=== PATIENT | male | born 1955 | race Caucasian/White ===

== ENCOUNTER 2020-09-01 14:15 | Outpatient (REF) | payer MEDICARE, SELFPAY | END 2020-09-01 14:16 | disposition home or self-care (01) | LOC: HO.LNP 14:15 | PROVIDERS: Visit Provider Nurse Practitioner Family | DX: Z20.828 Contact with and (suspected) exposure to other viral communicable diseases (principal) | CPT/HCPCS: 87635 ==

== ENCOUNTER 2021-10-09 14:17 | Emergency (ER) | payer MEDICARE, SELFPAY ==
--- NOTE | ~2021-10-09 | XR_ITS ---
EXAMINATION: XR TIBIA AND FIBULA, RIGHT CLINICAL INFORMATION: Trauma COMPARISON: None TECHNIQUE: AP and lateral views of the right tibia and fibula were obtained. FINDINGS: The bones and soft tissues are normal. No fracture. No osseous lesions. XR/XR tibia fibula RT 2V IMPRESSION: Normal right tibia and fibula.
[2021-10-09 14:31] VITALS: BP 141/82; PULSE 55; RESP 18; TEMP 36.6; O2SAT 98; BMI 31.8
--- NOTE | 2021-10-09 14:50 | ED_ITS ---
HPI - Extremity Injury (Lower) General Chief Complaint: Extremity Injury, Lower Stated Complaint: r godoy inj Time Seen by Provider: 10/09/21 14:45 Source: patient Mode of arrival: ambulatory Limitations: no limitations History of Present Illness HPI Narrative: Pt injured the ant rt leg while lifting a stone,c/o rt anterior leg pain complaint: leg injury Onset (ago): hour(s) (2h ) Type of Injury: blunt Place: street/outdoors Severity: moderate Relieving factors: nothing Exacerbating factors: nothing Context: direct blow Related Data Home Medications Medication Instructions Recorded Confirmed atorvastatin 20 mg tablet 20 mg PO DAILY 09/01/20 clotrimazole 1 % topical cream 1 applic TOPICAL QAM AND QHS 09/01/20 metoprolol tartrate 25 mg tablet 25 mg PO BID 09/01/20 varicella-zoster glycoE [id number] IM ONCE 09/01/20 adj(PF) 50 mcg/0.5 mL IM susp, kit Allergies Allergy/AdvReac Type Severity Reaction Status Date / Time poison isrrael extract Allergy Unknown RASH Unverified 08/12/20 15:18 [POISON ISRRAEL] Review of Systems Review of Systems: Yes all other systems are reviewed and are negative Constitutional: Constitutional: Reports no additional constitutional complai nts ENT: Reports system reviewed and no additional complaints, except as documented and Denies dizziness Cardiovascular: Cardiovascular: Reports no additional cardiovascular complaints and Denies syncope Respiratory: Respiratory: Reports no additional respiratory complaints Gastrointestinal: Gastrointestinal: Reports no additional gastrointestinal complaints Neurologic: Denies dizziness, Denies syncope, Denies lack of coordination and Denies focal weakness [facility] Social History Social History Advance Directives: No Advance Directives Information Provided: No Physical Exam Vital Signs: Vital Signs: Last Vital Signs Temp 98 F 10/09/21 14:31 Pulse 55 10/09/21 14:31 Resp 18 10/09/21 14:31 BP 141/82 H 10/09/21 14:31 Pulse Ox 98 10/09/21 14:31 Body Mass Index 31.8 Const: General: cooperative, healthy appearing, well developed and alert HENMT: Head: Yes normal to inspection Mouth: Normal oral and palatal mucosa present Neck: Neck: Yes normal visual inspection Chest: Chest palpation & inspection: normal inspection of the chest and normal palpation of entire chest wall Resp: Effort & Inspection: normal respiratory effort Auscultation: clear to auscultation bilaterally Cardio: Jugular venous distension: no JVD Palpation: normal PMI Rate: regular rate Rhythm: regular rhythm GI: Inspection: Yes normal to inspection Palpation (GI): Soft to palpation, Firmness to palpation present (GI), Tenderness to palpation present (GI) and Guarding due to palpation present (GI) Extrem: Other: hematoma anterior aspect rt leg,calf is soft He has good pedal pulses Course Course Course Narrative: xray no fx seen,pt has sodt tissue swelling,he has good pulses at this time. Pt was told to keep his leg elevated all the time,to put ice and to return if increasing swelling MDM - Extremity Injury (Lower) Imaging Data leg xr: Radiologist's impression: cc: Cholo Connell MD~ EXAMINATION: XR TIBIA AND FIBULA, RIGHT CLINICAL INFORMATION: Trauma? COMPARISON: None? TECHNIQUE: AP and lateral views of the right tibia and fibula were obtained. FINDINGS: The bones and soft tissues are normal. No fracture. No osseous lesions. ? XR/XR tibia fibula RT 2V IMPRESSION: Normal right tibia and fibula. ? Dictated By: Mary Her MD Signed By: <Electronically signed by Mary Her MD in OV> 10/09/21 1531 DD/ 1449 TD/TT:? General House Worker: VIRGEN Discharge Plan Discharge Clinical Impression: Hematoma of lower leg, Abrasion Patient Disposition: Home, Self-Care Instructions: Contusion in Adults (ED), Hematoma (ED) Additional Instructions: Keep your leg elevated, apply ice, return to the emergency department if the swelling increases if the foot feels numb if you have increasing pain Referrals: Olivia Greenwood MD [Primary Care Provider] - 2 days
== END 2021-10-09 15:48 | disposition home or self-care (01) ==
PROVIDERS: Emergency Provider Emergency Medicine; PCP Internal Medicine
DX: S80.11XA Contusion of right lower leg, initial encounter (principal); S80.811A Abrasion, right lower leg, initial encounter; X50.9XXA Other and unspecified overexertion or strenuous movements or postures, initial encounter; Y93.9 Activity, unspecified; Y92.89 Other specified places as the place of occurrence of the external cause; Y99.9 Unspecified external cause status
CPT/HCPCS: 73590; 99283

== ENCOUNTER 2022-05-16 13:37 | Emergency (ER) | payer MEDICARE, SELFPAY ==
[2022-05-16 13:38] VITALS: BP 138/75; PULSE 50; RESP 18; TEMP 36.6; O2SAT 99; BMI 32.5
[2022-05-16] MEDS: Lidocaine HCl 1 % MPF 5 ML VIAL SUBCUT (15:34)
--- NOTE | 2022-05-16 16:04 | ED_ITS ---
HPI - Wound/Laceration General Chief Complaint: Wound/Laceration Stated Complaint: l leg laceration at home Time Seen by Provider: 05/16/22 14:32 Source: patient Mode of arrival: ambulatory Limitations: no limitations History of Present Illness HPI narrative: 67-year-old male with a history of high blood pressure and high cholesterol here with report of laceration to the left thigh which occurred 30 minutes prior to arrival. Patient tells me he was using a maggie saw and it kicked back cutting his left leg through his jeans. His last tetanus was 5 years ago. No numbness, tingling, redness, fevers, chills. Related Data Home Medications Medication Instructions Recorded Confirmed atorvastatin 20 mg tablet 20 mg PO DAILY 09/01/20 clotrimazole 1 % topical cream 1 applic topical QAM AND QHS 09/01/20 metoprolol tartrate 25 mg tablet 25 mg PO BID 09/01/20 varicella-zoster glycoE [id number] IM ONCE 09/01/20 adj(PF) 50 mcg/0.5 mL IM susp, kit Previous Rx's Medication Instructions Recorded cephalexin 500 mg capsule 500 mg PO BID #14 caps 05/16/22 Allergies Allergy/AdvReac Type Severity Reaction Status Date / Time poison jessika extract Allergy Unknown RASH Unverified 08/12/20 15:18 [POISON JESSIKA] Review of Systems Review of Systems: Yes all other systems are reviewed and are negative Constitutional: Constitutional: Reports no additional constitutional complaints, Denies body ache(s), Denies chills, Denies fever(s), Denies headache(s) and Denies weakness Eyes: Eyes: Reports no additional eye complaints and Denies change in vision ENT: Reports system reviewed and no additional complaints, except as documented, Denies dizziness, Denies headache(s), Denies nasal congestion, Denies nasal discharge and Denies neck pain Cardiovascular: Cardiovascular: Reports no additional cardiovascular complaints, Denies chest pain, Denies leg edema and Denies dyspnea Respiratory: Respiratory: Reports no additional respiratory complaints, Denies cough and Denies dyspnea Gastrointestinal: Gastrointestinal: Reports no additional gastrointestinal complaints, Denies abdominal pain, Denies diarrhea, Denies nausea and Denies vomiting Genitourinary: Genitourinary: Denies urinary incontinence Musculoskeletal: Musculoskeletal: Reports no additional musculoskeletal complaints, Denies back pain, Denies arthralgias, Denies joint swelling, Denies neck pain, Denies numbness and Denies tingling Integumentary/Breasts: Skin/Breast: Reports system reviewed and no additional complaints, except as docu and Denies rash Comments: +lac Neurologic: Reports system reviewed and no additional complaints, except as documented, Denies Abnormal speech present, Denies dizziness, Denies headache(s), Denies numbness, Denies tingling and Denies weakness PMFSH Past Medical History Attestation statement: The following information was validated with the patient. Source: old records reviewed and nursing notes reviewed Social History Social History Advance Directives: No Advance Directives Information Provided: No Physical Exam Vital Signs: Vital Signs: Last Vital Signs Temp 98 F 05/16/22 13:38 Pulse 50 05/16/22 13:38 Resp 18 05/16/22 13:38 BP 138/75 05/16/22 13:38 Pulse Ox 99 05/16/22 13:38 O2 Del Method 05/16/22 13:38 BMI result Body Mass Index 32.5 Const: General: cooperative, healthy appearing, comfortable and no acute distress Orientation/consciousness: patient oriented x3 Limitations: no limitations HEENT: Head: Yes normal to inspection Ears: hearing grossly normal cece aterally General nose exam: Normal external nose present Face and sinus: Yes normal facial exam Mouth: Normal oral and palatal mucosa present Throat: Yes posterior oropharynx normal Eyes: General: appearance normal, both eyes and all related structures Pupils: Equal, round and reactive pupils present Neck: Neck: Yes normal visual inspection Chest: Chest palpation & inspection: normal inspection of the chest Resp: Effort & Inspection: normal respiratory effort Auscultation: clear to auscultation bilaterally Cardio: Rate: regular rate Rhythm: regular rhythm Peripheral pulses: Peripheral pulses 2+ throughout GI: Inspection: Yes normal to inspection Palpation (GI): Soft to palpation and nontender Auscultation: normal bowel sounds Back/Spine/Pelvis: Thoracic/Lumbar Spine: thoracic and lumbar spine normal to inspection Skin: General skin exam: no rashes or lesions noted Neuro: General: patient oriented x3, no focal motor deficits and normal sensation to monofilament Cranial nerves: Yes Equal, round and reactive pupils present Cognition (Neuro): normal cognition Speech: No Abnormal speech present Gait exam (Neuro): Normal gait present Motor exam (neuro): 5/5 motor strength present throughout Extrem: General: Yes normal to inspection Knee images: 1. 8 cm laceration into the subcutaneous tissue. The muscle is nor mal. Patient is able to flex and extend the quad with no difficulty. Distal DP and PT pulses palpated Course Course Course Narrative: 1500-during the wound repair approximately 8-10 4 x 4 dressings were used due to bleeding. The site was irrigated extensively with Betadine and normal saline. After the wound was repaired there was quite a bit of bleeding noted from the suture sites and from the wound bed. A dressing was applied as well as compression bandage. Will monitor for 30 minutes reassessed Reevaluation(s) Reevaluation #1: The compression bandage was removed. There was a local hematoma underneath the laceration site. There is still some active bleeding coming from the incision. It appeared to be coming more proximally. The wound was seen in conjunction with Dr. Castellon. I injected 7 cc of lidocaine with epinephrine into the proximal site and reapplied the compression bandage. Will monitor Time: 15:30 Reevaluation #2: I removed the compression bandage. Bleeding has ceased. I pressed all around the hematoma underneath the surgical site and there was no bleeding produced. A compression bandage was reapplied. Will give crutches. Will treat with prophylactic antibiotics due to the movement of the wound. Reviewed worrisome signs and symptoms with the patient when to return to the emergency department. Comfortable discharge home. Time: 16:00 MDM - Wound/Laceration MDM Narrative Medical decision making narrative: 67 yo male with history of htn, hld here with laceration to left thigh. FROM distally. Bleeding controlled. tetanus up to date. See procedure note. Differential Diagnosis Differential diagnosis: Likely laceration Medical Records Attestation: I reviewed the patient's medical records. Lab Data Attestation: I reviewed the patient's lab results. Procedures Laceration Laceration 1: Site: other (thigh) Side (If applicable): left Size (cm): 8 Description: linear Depth: simple, single layer Local Anesthetic: lidocaine 1% Amount of anesthesia used (mL): 13 Pre-repair: wound explored, irrigated extensively and deep structures intact Skin layer closed with: vicryl Size (cm): 5-0 Number of sutures: 8 Technique: simple, interrupted Subcutaneous layer closed with: other (Poly sorb) Size: 4-0 Number of sutures: 3 Discharge Plan Discharge Clinical Impression: Laceration Patient Disposition: Home, Self-Care Additional Instructions: Leave the Uri wrap on for the next 2 days. Use crutches just to help you with ambulation. You can bear some weight Wash the area with soap and water every day while showering. Water may run over the sutures but do not like them soak in water Sutures out in 10 days Monitor for signs of infection which include redness, drainage, fever Return for a cold, pale foot. Return if the thigh is very firm and your unable to press it. Return if you have numbness or tingling in your lower leg or for severe pain Prescriptions: New cephalexin 500 mg capsule 500 mg PO BID Qty: 14 0RF Referrals: Olivia Greenwood MD [Primary Care Provider] - 10 days Interventions: ED Discharge Assessment Last Done: 05/16/22 16:29 Discharge Date/Time: 05/16/22 16:30
[2022-05-16] MEDS: Lidocaine HCl 2%/Epi 1:100,000 20 ML VIAL INFILTRATI (16:12)
== END 2022-05-16 16:30 | disposition home or self-care (01) ==
PROVIDERS: Emergency Provider Emergency Medicine; PCP Internal Medicine
DX: S71.112A Laceration without foreign body, left thigh, initial encounter (principal); W31.1XXA Contact with metalworking machines, initial encounter; Y93.9 Activity, unspecified; Y92.9 Unspecified place or not applicable; Y99.9 Unspecified external cause status; Z79.899 Other long term (current) drug therapy
CPT/HCPCS: 12034; 99283; 99284

== ENCOUNTER 2022-05-22 11:45 | Emergency (ER) | payer MEDICARE, SELFPAY ==
[2022-05-22 12:49] VITALS: BP 129/67; PULSE 50; RESP 17; TEMP 36.8; O2SAT 98; BMI 32.5
--- NOTE | 2022-05-22 14:18 | ED_ITS ---
HPI - Wound/Laceration General Chief Complaint: Wound/Laceration Stated Complaint: stitches popped out,swollen wound area, fluid leak Time Seen by Provider: 05/22/22 13:50 Source: patient Mode of arrival: ambulatory Limitations: no limitations History of Present Illness HPI narrative: Left thigh wound laceration check. Patient sustained a left thigh wound laceration patient require 8 sutures and subcu suturing, patient came in today after noted increased ease serous agent is discharged from the mind with swelling under the laceration patient otherwise decline fever, no chills, no knee joint swelling or pain able to fully move his left knee. No other trauma, noted that 1 of the suture came out. Related Data Home Medications Medication Instructions Recorded Confirmed atorvastatin 20 mg tablet 20 mg PO DAILY 09/01/20 clotrimazole 1 % topical cream 1 applic topical QAM AND QHS 09/01/20 metoprolol tartrate 25 mg tablet 25 mg PO BID 09/01/20 varicella-zoster glycoE [id number] IM ONCE 09/01/20 adj(PF) 50 mcg/0.5 mL IM susp, kit Previous Rx's Medication Instructions Recorded cephalexin 500 mg capsule 500 mg PO BID #14 caps 05/16/22 doxycycline hyclate 100 mg tablet 100 mg PO BID #14 tabs 05/22/22 mupirocin 2 % topical ointment 1 appl topical TID #15 grams 05/22/22 Allergies Allergy/AdvReac Type Severity Reaction Status Date / Time poison jessika extract Allergy Unknown RASH Unverified 08/12/20 15:18 [POISON JESSIKA] Review of Systems Review of Systems: All other systems are reviewed and are negative Constitutional: Reports as per HPI and Reports no additional constitutional complaints Eyes: Reports as per HPI and Reports no additional eye complaints Reports system reviewed and no additional complaints, except as documented Cardiovascular: Reports as per HPI and Reports no additional cardiovascular complaints Respiratory: Reports as per HPI and Reports no additional respiratory complaints Gastrointestinal: Reports as per HPI and Reports no additional gastrointestinal complaints Genitourinary: Reports no additional female genitourinary complaints Musculoskeletal: Reports no additional musculoskeletal complaints Skin/Breast: Reports system reviewed and no additional complaints, except as docu Psychiatric: Reports no additional psychiatric complaints Endocrine: Reports no additional endocrine complaints Hematologic/Lymphatic: Reports no additional hematologic/lymphatic complaints Allergic/Immunologic: Reports no additional allergic/immunologic complaints Reports system reviewed and no additional complaints, except as documented and Reports Abnormal speech present [facility] Social History Social History Advance Directives: No Advance Directives Information Provided: Yes Physical Exam Vital Signs: Vital Signs: Last Vital Signs Temp 98.3 F 05/22/22 12:49 Pulse 50 05/22/22 12:49 Resp 17 05/22/22 12:49 BP 129/67 05/22/22 12:49 Pulse Ox 98 05/22/22 12:49 O2 Del Method 05/22/22 12:49 BMI result Body Mass Index 32.5 Vital signs have been reviewed as appeared to be correct. Blood pressure normal. Heart rate normal. Respiration rate normal. Temperature normal. Oxygen saturation normal. Appearance: Alert. Oriented X3. No acute distress. Head: Normal external exam. Normocephalic. Atraumatic. No Maguire signs noted. No raccoon eyes noted Eyes: PERRLA. EOMI. Conjunctiva and sclera normal. Eyelids normal. ENT: TM's Normal. Pharynx normal. Uvula midline. Moist mucous membranes. No tr ismus noted. No drooling noted. No muffled voice noted. Neck: Normal inspection. Neck supple. FROM. No adenopathy. Thyroid Normal. No meningeal signs. No neck mass noted. CVS: Normal heart rate and rhythm. Heart sound normal. No murmurs noted. Pulses normal throughout. Respiratory: No respiratory distress. Painless inspiration. Breath sounds normal. No wheezes/rales/rhonchi noted. Chest nontender. No accessory muscle usage noted or decreased air movement noted. Abdomen: Soft and nontender. Bowel sounds normal in all 4 quadrants. No distention noted. No organomegaly noted. No visible injury noted. Back: No CVA tenderness. Full range of motion noted. Skin: Skin warm and dry. Normal skin color. Normal skin turgor. No rashes/lesions/lacerations noted. Extremities: 8 cm laceration on the inner side of the left thigh, [address], slight serosanguineous discharge from the wound, but otherwise appear healing well, no fluctuation felt, full range of motion of the left knee with no redness on the knee, slight ecchymosis proximal and distal to the laceration which appear to be a SQ hematoma. Cranial nerve exam: II-XII are grossly intact No motor deficit. No sensory deficit. Reflexes normal. Course Course Course Narrative: 67-year-old male sustained laceration to the left knee patient require suturing for wound repair her including SQ wound repair, no fluctuation, no apparent cellulitis on the wound. Patient has a full range of motion of the left knee. Patient was sent home on Keflex twice a day will add doxycycline to cover for MRSA. Discharge Plan Discharge Clinical Impression: Encounter for wound re-check Patient Disposition: Home, Self-Care Instructions: Laceration (ED) Additional Instructions: Use bacitracin ointment 3 times a day and change dressing. Use a new antibiotic with the other antibiotic. Return to the emergency department in 3 days for suture removal and wound recheck. Come immediately to the emergency department if notice redness or hotness or purulent discharge from the wound. Prescriptions: New doxycycline hyclate 100 mg tablet 100 mg PO BID Qty: 14 0RF mupirocin 2 % ointment 1 appl topical TID Qty: 15 0RF Rx Instructions: Apply to the wound 3 times a day for 5 days. No Action cephalexin 500 mg capsule 500 mg PO BID Qty: 14 0RF
--- NOTE | 2022-05-22 14:22 | PC.NURSE ---
Dr Verdin asked to place dressing on pt sutures to the left leg. The dressing was placed pt is comfortable and awaiting discharge
== END 2022-05-22 14:50 | disposition home or self-care (01) ==
PROVIDERS: Emergency Provider Emergency Medicine; PCP Internal Medicine
DX: Z48.00 Encounter for change or removal of nonsurgical wound dressing (principal)
CPT/HCPCS: 99283

== ENCOUNTER 2022-05-26 10:54 | Emergency (ER) | payer MEDICARE, SELFPAY ==
[2022-05-26 11:15] VITALS: BP 118/71; PULSE 46; RESP 16; TEMP 36.6; O2SAT 97; BMI 32.5
--- NOTE | 2022-05-26 11:43 | ED_ITS ---
HPI - General Adult General Chief complaint: General Medical Stated complaint: suture removal from prev. visit Time Seen by Provider: 05/26/22 11:23 Source: patient Mode of arrival: ambulatory History of Present Illness HPI narrative: 67-year-old male with a past medical history of HTN, HLD, presenting to the ED for suture removal from a left thigh and wound recheck. Patient had large laceration to left thigh s/p using saw on 05/16/2022, which was repaired in our ED and discharged on Keflex. Patient was seen again on 05/22 for wound recheck, doxycycline added to regimen. Patient reports compliance with antibiotics, reports overall improvement. Admits 2 sutures popped out on their own. Reports mild residual drainage from area which is improving. Denies fever, chills, decreased ROM, increased swelling, numbness/tingling Related Data Home Medications Medication Instructions Recorded Confirmed atorvastatin 20 mg tablet 20 mg PO DAILY 09/01/20 clotrimazole 1 % topical cream 1 applic topical QAM AND QHS 09/01/20 metoprolol tartrate 25 mg tablet 25 mg PO BID 09/01/20 varicella-zoster glycoE [id number] IM ONCE 09/01/20 adj(PF) 50 mcg/0.5 mL IM susp, kit Previous Rx's Medication Instructions Recorded cephalexin 500 mg capsule 500 mg PO BID #14 caps 05/16/22 doxycycline hyclate 100 mg tablet 100 mg PO BID #14 tabs 05/22/22 mupirocin 2 % topical ointment 1 appl topical TID #15 grams 05/22/22 Allergies Allergy/AdvReac Type Severity Reaction Status Date / Time poison jessika extract Allergy Unknown RASH Verified 05/26/22 11:20 [POISON JESSIKA] Review of Systems Review of Systems: Constitutional: No Fever, No Chills ENT/Mouth: No Ear Pain, No Nasal Congestion, No sore throat, No Rhinorrhea, No Swallowing Difficulty Cardiovascular: No Chest Pain, No SOB Respiratory: No Cough, No Sputum, No Wheezing Gastrointestinal: No Nausea, No Vomiting, No Diarrhea, No Constipation, No Abdominal pain Genitourinary: No Dysuria, No Urgency, No Flank Pain Musculoskeletal: No joint pain, No Myalgias, No Joint Swelling Skin: + Skin Lesions, No rash Neuro: No Weakness, No Numbness, No Paresthesias Yes all other systems are reviewed and are negative [facility] Past Medical History Attestation statement: The following information was validated with the patient. Social History Social History Advance Directives: No Advance Directives Information Provided: Yes Physical Exam ED Vital Signs: Vital Signs - 24 hr 05/26/22 11:15 Temperature 97.9 F Pulse Rate 46 L Respiratory Rate 16 Blood Pressure 118/71 Pulse Oximetry 97 Oxygen Delivery Method Room Air BMI result Body Mass Index 32.5 Const General: cooperative, healthy appearing and no acute distress Orientation/consciousness: patient oriented x3 Limitations: no limitations HENMT Head: Yes normal to inspection and Yes atraumatic Ears: hearing grossly normal bilaterally General nose exam: Normal external nose present Face and sinus: Yes normal facial exam Eyes General: appearance normal, both eyes and all related structures EOM: EOMs intact bilaterally Neck Neck: Yes normal visual inspection and Yes no meningeal signs Resp Effort & Inspection: normal respiratory effort and no respiratory distress Auscultation: clear to auscultation bilaterally Cardio Rate: regular rate Heart sounds: S1 normal heart sound present and S2 normal heart sound present GI Inspection: Yes normal to inspection Skin Other: Appropriately healing laceration noted to left inner thigh with [address] Mild surrounding healing ecchymosis with underlying hematoma. No active drainage from wound. Slight centralized wound dehiscence. No fluctuance/induration, no erythema, no crepitus. Full range of motion to knee intact. Rashes: no rashes Neuro General: patient oriented x3, tone normal and no meningeal signs Gait exam (Neuro): Normal gait present Extrem General: Yes normal to inspection Procedures Procedure Narrative Procedure Narrative: Suture removal Left thigh 6 sutures removed No complications Steri-Strips applied with nonstick and Uri wrap Medical Decision Making [facility] Narrative Medical decision making narrative: 67-year-old male with a past medical history of HTN, HLD, presenting to the ED for suture removal from a left thigh and wound recheck. On exam vital signs stable, NAD, physical exam as above. Six sutures removed from healing wound. Encouraged completion of previously prescribed antibiotics, Steri-Strips applied for extra support. Discussed worrisome signs and symptoms and strict return precautions Discharge Plan Discharge Clinical Impression: Encounter for removal of sutures, Visit for wound check Patient Disposition: Home, Self-Care Instructions: Stitches Removal (ED) Additional Instructions: Continue taking previously prescribed antibiotics. Wear Steri-Strips at home, keep dry and clean, they will fall off on their own Continue to wear Uri wrap If symptoms persist or worsen, area begins to look infected, has persistent or worsening drainage, redness around the area return to the emergency department Prescriptions: No Action cephalexin 500 mg capsule 500 mg PO BID Qty: 14 0RF doxycycline hyclate 100 mg tablet 100 mg PO BID Qty: 14 0RF mupirocin 2 % ointment 1 appl topical TID Qty: 15 0RF Rx Instructions: Apply to the wound 3 times a day for 5 days. Referrals: Olivia Greenwood MD [Primary Care Provider] - 5 days Interventions: ED Discharge Assessment Last Done: 05/26/22 11:51 Discharge Date/Time: 05/26/22 11:52
--- NOTE | 2022-05-26 11:51 | PC.NURSE ---
NO SIGN OF INFECTION TO LEFT THIGH WOUND.
== END 2022-05-26 11:52 | disposition home or self-care (01) ==
PROVIDERS: Emergency Provider Emergency Medicine Emergency Medical Services; PCP Internal Medicine
DX: Z48.02 Encounter for removal of sutures (principal); Z79.899 Other long term (current) drug therapy
CPT/HCPCS: 99283

== ENCOUNTER 2022-07-28 12:12 | Emergency (ER) | payer MEDICARE, SELFPAY ==
--- NOTE | ~2022-07-28 | CT_ITS ---
EXAMINATION: CT ANGIOGRAM OF THE CHEST WITH AND WITHOUT CONTRAST (CT PULMONARY ANGIOGRAM FOR PE) CLINICAL INFORMATION: Reason for Exam new afib, COVID, SOB, cough COMPARISON: None TECHNIQUE: Prior to contrast administration, noncontrast localization images were obtained. Subsequently, multidetector volumetric imaging was performed from the thoracic inlet to below the diaphragms following the administration of 65 mL Omnipaque 350 intravenous contrast. No contrast reaction reported Sagittal, coronal, and MIP oblique sagittal reformatted images were obtained on the CT workstation, uploaded to PACS, and reviewed. This CT examination was performed using dose optimization techniques as appropriate, variously including the following: *Automated exposure control *Adjustment of mA and/or kV according to patient size (this includes techniques or standardized protocols for targeted exams where dose is matched to indication/reason for exam; i.e. extremities or head) *Use of iterative reconstruction technique Total exam dose-length product 368 mGy-cm FINDINGS: QUALITY OF STUDY/CONTRAST BOLUS: Satisfactory. PULMONARY ARTERIES: No central or segmental pulmonary emboli. THORACIC AORTA: No aneurysm or dissection. LUNG: No focal consolidation or nodule identified. PLEURA: No pleural effusion or pneumothorax. MEDIASTINUM: Normal heart size. No pericardial effusion. No hilar or mediastinal lymphadenopathy by size criteria. No evidence of septal bowing or right heart strain. CHEST WALL/AXILLA: No axillary or internal mammary lymphadenopathy by size criteria. OSSEOUS STRUCTURES: No acute finding. UPPER ABDOMEN: Suspect normal variant origin of the left hepatic artery from the left gastric artery. No reflux of contrast into the hepatic veins to suggest elevated right heart pressures. CT/CT angio chest PE protocol IMPRESSION: No evidence of pulmonary embolism. VTE: negative
--- NOTE | ~2022-07-28 | XR_ITS ---
EXAMINATION: XR CHEST CLINICAL INFORMATION: Chest pain COMPARISON: Chest radiographs 03/22/2017 TECHNIQUE: Portable upright AP view of the chest was obtained. FINDINGS: No pneumothorax or pleural reaction. No airspace consolidation or effusion. The vascularity is normal. Heart is within limits of normal size. Hilar and mediastinal contours are unremarkable. No visible acute bony abnormality. XR/XR chest 1V IMPRESSION: Unremarkable examination.
--- NOTE | 2022-07-28 12:16 | ECG_ITS ---
Test Reason : CHEST PAIN Blood Pressure : / mmHG Vent. Rate : 101 BPM Atrial Rate : 000 BPM P-R Int : 000 ms QRS Dur : 078 ms QT Int : 324 ms P-R-T Axes : 000 000 -34 degrees QTc Int : 420 ms Atrial fibrillation with rapid ventricular response Inferior infarct , age undetermined Abnormal ECG When compared with ECG of 22-MAR-2017 20:38, T wave inversion more evident in Inferior leads Referred By: Generic ED Physician Electronically Signed By:BROOKLYN PINEDA
[2022-07-28 12:24] VITALS: BP 79/56; PULSE 83; RESP 18; TEMP 37.7; O2SAT 96; BMI 31.8
[2022-07-28 12:41] LABS: MANUAL DIFF FLAG NO
--- NOTE | 2022-07-28 12:41 | PC.NURSE ---
Pt brought back to ED immediately after triage.
[2022-07-28 12:42] LABS: Basophils Percent Auto 0.2 % (0-2); Hematocrit 44.5 % (42.0-52.0); Imm Gran Abs Auto 0.05 X10*3/uL (0.00-0.03); Imm Gran Pct Auto 0.5 % (0.0-0.4); Lymphocytes Absolute Auto 1.1 X10*3/uL (1.2-4.9); Lymphocytes Percent Auto 10.1 % (20-40); Mean Corpuscular HGB Conc 33.7 g/dl (31.0-36.0); Mean Corpuscular Hemoglobin 30.7 pg (27.0-33.0); Mean Corpuscular Volume 91.2 fL (80.0-98.0); Mean Platelet Volume 11.3 fL (9.4-12.4); Monocytes Absolute Auto 1.2 X10*3/uL (0.1-1.2); Neutrophils Absolute Auto 8.3 x10*3/uL (2.0-8.3); Neutrophils Percent Auto 78.2 % (45-73); Platelet Count 142 X10*3/uL (160-400); Red Blood Count 4.88 X10*6/uL (4.60-5.80); Red Cell Distribution Width 13.2 % (11.0-16.0); White Blood Count 10.5 X10*3/uL (4.8-10.8)
[2022-07-28] MEDS: 0.9 % Sodium Chloride 1,000 ML 999 ML IVCONT (12:52)
[2022-07-28 12:53] VITALS: BP 130/76; PULSE 97; RESP 16; TEMP 37.3; O2SAT 96
[2022-07-28 12:55] LABS: Anion Gap 18 (12-20); Blood Urea Nitrogen 14 mg/dL (9-16); Calcium 8.7 mg/dL (8.4-10.2); Carbon Dioxide 23 mmol/L (22-29); Chloride 97 mmol/L (96-108); Creatinine Clr Calc Pharmacy 83.3; Estimated Glomerular Filt Rate > 60; Glucose Random 122 mg/dL (60-115); Potassium 4.2 mmol/L (3.3-5.1); Sodium 134 mmol/L (135-145)
--- NOTE | 2022-07-28 13:00 | ED.CHESTPAIN ---
HPI - Chest Pain General Chief Complaint: Chest Pain Stated Complaint: chest tightness/Diff breathing/weakness Time Seen by Provider: 07/28/22 12:39 Source: patient and family Mode of arrival: ambulatory History of Present Illness HPI narrative: Patient is a 67-year-old male presenting with shortness of breath, chest tightness, fever, weakness, productive cough, sore throat for 5 days. Patient tested positive for COVID x5 days ago and reports worsening of symptoms since. Patient reports starting Paxlovid last night, and feels worse today. Reports fevers ranging from 100-101, and pulse rate resting and upper 90s. Patient also reports GI upset since last week. Reports is also COVID positive day 8, asymptomatic now. Reports decreased appetite, denies any nausea, vomiting, diarrhea. 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 Patient has been followed by cardiology since and is maintained on metoprolol however is not anticoagulated and has not had any recorded AFib since initial episode 5 years prior. MD complaint: chest heaviness and other (SOB, fever, weakness) Onset (ago): day(s) (5) Timing of current episode: increasing Onset: during rest and during exertion Pain radiation: none Quality: tightness Relieving factors: nothing Exacerbating factors: nothing Context: recent illness Associated symptoms: nausea, dyspnea, fever and cough Treatment prior to arrival: none Related Data Home Medications Medication Instructions Recorded Confirmed atorvastatin 20 mg tablet 20 mg PO DAILY 09/01/20 clotrimazole 1 % topical cream 1 applic topical QAM AND QHS 09/01/20 metoprolol tartrate 25 mg tablet 25 mg PO BID 09/01/20 varicella-zoster glycoE [id number] IM ONCE 09/01/20 adj(PF) 50 mcg/0.5 mL IM susp, kit Previous Rx's Medication Instructions Recorded cephalexin 500 mg capsule 500 mg PO BID #14 caps 05/16/22 doxycycline hyclate 100 mg tablet 100 mg PO BID #14 tabs 05/22/22 mupirocin 2 % topical ointment 1 appl topical TID #15 grams 05/22/22 benzonatate 100 mg capsule 100 mg PO TID PRN cough #30 caps 07/28/22 codeine 10 mg-guaifenesin 100 mg/5 5 ml PO Q6H PRN cough #60 mL 07/28/22 mL oral liquid (Guaiatussin AC) rivaroxaban 20 mg tablet (Xarelto) 20 mg PO DAILY AFIB with RVR #30 07/28/22 tabs Allergies Allergy/AdvReac Type Severity Reaction Status Date / Time poison jessika extract Allergy Unknown RASH Verified 07/28/22 12:22 [POISON JESSIKA] Review of Systems Review of Systems: Constitutional: + fever, +chills, +fatigue, +malaise, +weakness ENT/Mouth: + sore throat, + Rhinorrhea, No Swallowing Difficulty Eyes: No Eye Pain, No Swelling, No Redness Cardiovascular: + Chest tightness, + SOB, No Orthopnea, No Edema Respiratory: + Cough, + Sputum, No Wheezing, + dyspnea Gastrointestinal:+ decreased appetite, No Nausea, No Vomiting, No Diarrhea, No abdominal Pain, No Hematochezia, No Melena Genitourinary: No Dysuria, No Urinary Frequency, No Hematuria Musculoskeletal: No joint pain, + Myalgias Skin: No Skin Lesions, No rash Neuro: + Weakness, +headache, No Numbness, No Dizziness Psych: No Anxiety/Panic, No Depression Heme/Lymph: No Bruising, No Lymphadenopathy Endocrine: No Polyuria, No Polydipsia PMFSH Past Medical History Medical History (Updated 07/28/22 @ 16:20 by MIRANDA Stack) Arrhythmia COVID-19 Hypertension [place] spotted fever Surgical History (Updated 07/28/22 @ 12:56 by Candida Enrique) History of tonsillectomy Social History Social History Alcohol intake: former Patient Tobacco Use Status: Never used Tobacco Use of substances other than those prescribed or required for medical reasons: No Advance Directives: No Advance Directives Information Provided: Yes Physical Exam Vital Signs: Vital Signs: Last Vital Signs Temp 98.6 F 07/28/22 15:06 Pulse 100 07/28/22 16:19 Resp 16 07/28/22 16:19 BP 106/70 07/28/22 15:06 Pulse Ox 97 07/28/22 16:19 O2 Del Method 07/28/22 16:19 BMI result Body Mass Index 31.8 Const: Other: Appearance: Alert. Oriented X3. No acute distress. Eyes: Pupils equal, round and reactive to light. ENT: Pharynx erythematous. Neck: Normal inspection. Neck supple. CVS: New onset AFib with rapid ventricular response HR holding in 100-110s Respiratory: No respiratory distress. Breath sounds normal. Lungs clear to auscultation bilaterally, no wheezes, rales, rhonchi noted Abdomen: Soft and nontender. +BS x4 Skin: Skin warm and + mildly diaphoretic. Normal skin color. Normal skin turgor. No rashes. Extremities: No lower extremity edema. NO calf tenderness or redness Neuro: Oriented X 3. No motor deficit. No sensory deficit. Course Course Course Narrative: Patient is a 67-year-old male presenting with shortness of breath, chest tightness, fever, weakness, productive cough, sore throat for 5 days. Positive COVID x5days with worsening of symptoms, Paxlovid initiated last night. Upon arrival, patient noted to be in new atrial fibrillation with rapid ventricular response. Patient initially hypotensive at 79/56 with temperature 99.8 at triage. Patient alert and oriented, in no acute respiratory distress. Lungs clear to auscultation bilaterally, no wheezes, rales, rhonchi noted. IV fluids initiated and patient normotensive at 130/76. Concern for PE vs viral pneumonia vs pleurl effusions. Less concern for [place], pericarditis PE protocol initiated due to shortness of breath and new onset AFib. CT angio chest pending, CXR pending. ECG compared to previous episode acute onset AFib with RVR in 2017, no major changes noted. Labs notable for CRP elevated to 9.74, BNP 101. High sensitivity troponin WNL at 7.4, no leukocytosis, coags pending, D-dimer pending 1340: CXR FINDINGS: No pneumothorax or pleural reaction. No airspace consolidation or effusion. The vascularity is normal. Heart is within limits of normal size. Hilar and mediastinal contours are unremarkable. No visible acute bony abnormality. 1515: CTA w and wo contrast: IMPRESSION: No evidence of pulmonary embolism. Plan: patient was ambulated In the room on room air. His oxygen saturation remained 98%. His heart rate was stable at 100. At this time would like to initiate anticoagulation. 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 Will plan to restart that. Will have follow-up with Cardiology & his primary care doctor. Spoke with his pharmacy and unfortunately Eliquis and Xarelto were not covered by his insurance and will cause some was 500 dollars [id number]. Discussed possible Lovenox and Coumadin with the patient and his and they have elected to pay [id number] for the NOAC. will follow-up with providers as an outpatient. They have a home pulse oximeter to monitor heart rate and oxygen levels. He will continue his metoprolol. At this time comfortable discharge home with close outpatient follow-up. Patient expressed understanding all questions were answered. Stable for DC. MDM - Chest Pain Lab Data Result diagrams: 07/28/22 12:33 07/28/22 12:33 Labs: Lab Results 07/28/22 07/28/22 07/28/22 Range/Units 12:33 12:33 12:33 WBC 10.5 (4.8-10.8) X10*3/uL RBC 4.88 (4.60-5.80) X10*6/uL Hgb 15.0 (14.0-18.0) g/dl Hct 44.5 (42.0-52.0) % MCV 91.2 (80.0-98.0) fL MCH 30.7 (27.0-33.0) pg MCHC 33.7 (31.0-36.0) g/dl RDW 13.2 (11.0-16.0) % Plt Count 142 L (160-400) X10*3/uL MPV 11.3 (9.4-12.4) fL Immature Gran % (Auto) 0.5 H (0.0-0.4) % Neut % (Auto) 78.2 H (45-73) % Lymph % (Auto) 10.1 L (20-40) % [place] % (Auto) 11.0 (2-11) % Eos % (Auto) 0.0 (0-4) % Baso % (Auto) 0.2 (0-2) % Lymph # (Auto) 1.1 L (1.2-4.9) X10*3/uL [place] # (Auto) 1.2 (0.1-1.2) X10*3/uL Eos # (Auto) 0.0 (0.0-0.4) X10*3/uL Baso # (Auto) 0.0 (0.0-0.2) X10*3/uL Abs Immat Gran (auto) 0.05 H (0.00-0.03) X10*3/uL Absolute Neuts (auto) 8.3 (2.0-8.3) x10*3/uL Absolute Nucleated RBC 0.000 (0.0-0.012) X10*3/uL Nucleated RBC % (auto) 0.0 (0.0-0.2) /100WBC PT (10.0-13.1) SEC INR (0.9-1.1) APTT (26.0-36.4) SEC D-Dimer High Sensitivty NG/ML Sodium 134 L (135-145) mmol/L Potassium 4.2 (3.3-5.1) mmol/L Chloride 97 (96-108) mmol/L Carbon Dioxide 23 (22-29) mmol/L Anion Gap 18 (12-20) BUN 14 (9-16) mg/dL Creatinine 1.07 (0.5-1.4) mg/dL Estim Creat Clear Calc 83.3 Estimated GFR > 60 Random Glucose 122 H (60-115) mg/dL Calcium 8.7 (8.4-10.2) mg/dL Total Bilirubin 1.2 H (0.0-1.0) mg/dL Direct Bilirubin 0.4 (0.0-0.5) mg/dL AST 20 (5-37) U/L ALT 13 (0-40) U/L Alkaline Phosphatase 58 (39-117) U/L Troponin I High Sens 7.4 (<3.5-35.0) ng/L C-Reactive Protein 9.74 H (< or = 0.50) mg/dL B-Natriuretic Peptide 101 H (<100) pg/mL Total Protein 7.4 (6.5-8.0) g/dL Albumin 4.1 (3.5-5.0) g/dL 07/28/22 Range/Units 13:44 WBC (4.8-10.8) X10*3/uL RBC (4.60-5.80) X10*6/uL Hgb (14.0-18.0) g/dl Hct (42.0-52.0) % MCV (80.0-98.0) fL MCH (27.0-33.0) pg MCHC (31.0-36.0) g/dl RDW (11.0-16.0) % Plt Count (160-400) X10*3/uL MPV (9.4-12.4) fL Immature Gran % (Auto) (0.0-0.4) % Neut % (Auto) (45-73) % Lymph % (Auto) (20-40) % [place] % (Auto) (2-11) % Eos % (Auto) (0-4) % Baso % (Auto) (0-2) % Lymph # (Auto) (1.2-4.9) X10*3/uL [place] # (Auto) (0.1-1.2) X10*3/uL Eos # (Auto) (0.0-0.4) X10*3/uL Baso # (Auto) (0.0-0.2) X10*3/uL Abs Immat Gran (auto) (0.00-0.03) X10*3/uL Absolute Neuts (auto) (2.0-8.3) x10*3/uL Absolute Nucleated RBC (0.0-0.012) X10*3/uL Nucleated RBC % (auto) (0.0-0.2) /100WBC PT 13.1 (10.0-13.1) SEC INR 1.1 (0.9-1.1) APTT 31.0 (26.0-36.4) SEC D-Dimer High Sensitivty 287 NG/ML Sodium (135-145) mmol/L Potassium (3.3-5.1) mmol/L Chloride (96-108) mmol/L Carbon Dioxide (22-29) mmol/L Anion Gap (12-20) BUN (9-16) mg/dL Creatinine (0.5-1.4) mg/dL Estim Creat Clear Calc Estimated GFR Random Glucose (60-115) mg/dL Calcium (8.4-10.2) mg/dL Total Bilirubin (0.0-1.0) mg/dL Direct Bilirubin (0.0-0.5) mg/dL AST (5-37) U/L ALT (0-40) U/L Alkaline Phosphatase (39-117) U/L Troponin I High Sens (<3.5-35.0) ng/L C-Reactive Protein (< or = 0.50) mg/dL B-Natriuretic Peptide (<100) pg/mL Total Protein (6.5-8.0) g/dL Albumin (3.5-5.0) g/dL ECG Data ECG #1: Attestation: I personally reviewed and interpreted this ECG as follows: ECG interpretation date: 07/28/22 ECG interpretation time: 13:11 Prior ECG tracings: available for review Interpretation: Atrial fibrillation with rapid ventricular rate response, no ST elevations or depressions noted, normal QTC interval, no major changes when compared to prior ECG in 2017. Critical Care Time Critical Care Time Critical Care Time: Yes Total Critical Care Time: 35 Attestation: I have personally provided critical care time exclusive of time spent on separately billable procedures. Time includes review of lab data, radiology results, discussion with consultants, and monitoring for potential decompensation. Intervention performed as documented. Discharge Plan Discharge Clinical Impression: Atrial fibrillation with rapid ventricular response, COVID-19 Patient Disposition: Home, Self-Care Instructions: A-fib (Atrial Fibrillation) (DC), Blood Thinners (ED) Additional Instructions: You are currently in atrial fibrillation. Please continue taking your metoprolol as prescribed. Please begin taking the Xarelto as prescribed, and follow-up with Cardiology and your PCP. Be aware that Xarelto will increase the risk of bleeding. Your CT scan showed no sign of pulmonary embolism or COVID pneumonia. recommend taking Tylenol 975 mg every 6 hours for fever and body aches. rest and drink plenty of fluids. avoid NSAIDs and anti-inflammatories while on blood thinner. Take cough medication as needed. Monitor your heart rate and oxygen level at home. If your heart rate is above 110-120 with shortness of breath, or if your oxygen levels are 90 or below, call 911 or come back to the ER for further evaluation. If you develop new or worsening symptoms call 911 or come back to the ER for further evaluation. Prescriptions: New Xarelto 20 mg tablet 20 mg PO DAILY Qty: 30 0RF Rx Instructions: must administer with evening meal benzonatate 100 mg capsule 100 mg PO TID PRN (Reason: cough) Qty: 30 0RF codeine-guaifenesin [Guaiatussin AC] 10-100 mg/5 mL liquid 5 ml PO Q6H PRN (Reason: cough) Qty: 60 0RF No Action cephalexin 500 mg capsule 500 mg PO BID Qty: 14 0RF doxycycline hyclate 100 mg tablet 100 mg PO BID Qty: 14 0RF mupirocin 2 % ointment 1 appl topical TID Qty: 15 0RF Rx Instructions: Apply to the wound 3 times a day for 5 days. Referrals: Damion Leary MD [Physician] - (afib w/ rvr, COVID+) Olivia Greenwood MD [Primary Care Provider] - Interventions: ED Discharge Assessment Last Done: 07/28/22 17:28 Discharge Date/Time: 07/28/22 17:31
[2022-07-28 13:02] LABS: Troponin-I High Sensitivity 7.4 ng/L (<3.5-35.0)
--- NOTE | 2022-07-28 13:07 | PC.NURSE ---
patient a&ox3, iv inserted, labs drawn, ivf started per order, clay dry press helper applied-afib on monitor, vitals otherwise stable, will continue to monitor
[2022-07-28 13:12] LABS: Alanine Aminotransferase 13 U/L (0-40); Albumin Level 4.1 g/dL (3.5-5.0); Alkaline Phosphatase 58 U/L (39-117); Aspartate Amino Transferase 20 U/L (5-37); Bilirubin Direct 0.4 mg/dL (0.0-0.5); Bilirubin Total 1.2 mg/dL (0.0-1.0); C Reactive Protein 9.74 mg/dL (< or = 0.50); Total Protein 7.4 g/dL (6.5-8.0)
[2022-07-28 13:18] LABS: B Type Natriuretic Peptide 101 pg/mL (<100)
[2022-07-28 13:57] LABS: INTERNATIONAL NORM RATIO 1.1 (0.9-1.1); Prothrombin Time 13.1 SEC (10.0-13.1)
[2022-07-28 13:59] LABS: D Dimer High Sensitivity 287 NG/ML
[2022-07-28] MEDS: iohexoL 350 MG/ML 100 ML INFUS..BTL IV (14:26)
[2022-07-28 14:43] VITALS: BP 117/71; PULSE 95; RESP 16; O2SAT 96
[2022-07-28 15:06] VITALS: BP 106/70; PULSE 89; RESP 18; TEMP 37; O2SAT 96
--- NOTE | 2022-07-28 15:07 | PC.NURSE ---
patient a&ox3, currently complaint of sore throat but denies actual pain, compliance monitor intact-afib on monitor, vs, call ward within reach, family at bedside, will continue to monitor.
[2022-07-28 16:19] VITALS: PULSE 100; RESP 16; O2SAT 97
--- NOTE | 2022-07-28 16:19 | PC.NURSE ---
pt ambulated at bedside, no sob chest discomfort or other symptoms noted. VS as documented.
== END 2022-07-28 17:31 | disposition home or self-care (01) ==
PROVIDERS: Physician Assistant; Emergency Provider Emergency Medicine; PCP Internal Medicine
DX: U07.1 COVID-19 (principal); R07.89 Other chest pain; I48.20 Chronic atrial fibrillation, unspecified; R50.9 Fever, unspecified; R05.9 Cough, unspecified; R06.02 Shortness of breath; Z79.899 Other long term (current) drug therapy
CPT/HCPCS: 36415; 71045; 71275; 80048; 80076; 83880; 84484; 85025; 85379; 85610; 85730; 86140; 93005; 96360; 99284; 99285; Q9967

== ENCOUNTER 2023-11-26 20:45 | Emergency (ER) | payer MEDICARE, SELFPAY ==
--- NOTE | ~2023-11-26 | CT_ITS ---
EXAMINATION: CT ABDOMEN AND PELVIS WITHOUT CONTRAST CLINICAL INFORMATION: flank pain, blood in urine. COMPARISON: No pertinent prior studies are available for comparison. TECHNIQUE: Multidetector volumetric imaging was performed from the superior aspect of the liver through the pubic symphysis without contrast per renal stone protocol. Sagittal and coronal reformatted images were obtained on the technologist workstation. This CT examination was performed using dose optimization techniques as appropriate, variously including the following: *Automated exposure control *Adjustment of mA and/or kV according to patient size (this includes techniques or standardized protocols for targeted exams where dose is matched to indication/reason for exam; i.e. extremities or head) *Use of iterative reconstruction technique DLP: 822 mGy-cm. FINDINGS: LUNG BASES: The visualized lung bases are unremarkable. LIVER, GALLBLADDER, BILIARY TREE: The non-contrast liver is normal in size, shape, and attenuation. No focal hepatic lesion or biliary ductal dilatation is present. The gallbladder is contracted but otherwise unremarkable with no evidence of radiopaque gallstones, gallbladder wall thickening, or obvious pericholecystic inflammatory changes. PANCREAS: Unremarkable. SPLEEN: Unremarkable. ADRENAL GLANDS: Unremarkable. KIDNEYS AND URETERS: The kidneys are normal in size, shape, and attenuation. No hydronephrosis, hydroureter, or perinephric stranding. No renal or ureteric calculi. BLADDER: Completely decompressed makes evaluation for subtle abnormalities difficult GASTROINTESTINAL TRACT: Scattered colonic diverticulosis but no obvious colonic wall thickening or pericolonic inflammatory change to suggest diverticulitis. Normal-appearing appendix in the right lower quadrant. Visualized small bowel unremarkable. Stomach is distended. ABDOMINAL WALL: No significant hernia is appreciated. LYMPHOVASCULAR STRUCTURES: Mild vascular calculation within the aorta iliac system. No bulky adenopathy. PELVIC VISCERA: Unremarkable. OSSEUS STRUCTURES: Degenerative changes in the spine CT/CT abdomen pelvis wo IV con IMPRESSION: No acute intra-abdominal process seen. No renal or ureteric calculi. No obstructive changes to the kidneys.
[2023-11-26 21:03] VITALS: BP 124/72; PULSE 71; RESP 18; TEMP 36.8; O2SAT 94; BMI 33.8
--- NOTE | 2023-11-26 21:05 | ED_ITS ---
HPI - General Adult General Chief complaint: Urogenital-Male Stated complaint: Blood in the urine/left side back pain Time Seen by Provider: 11/27/23 00:55 Source: patient Mode of arrival: ambulatory Limitations: no limitations History of Present Illness HPI narrative: Patient is a 68 year old assigned male at with a history of chronic back pain and Xarelto use presenting to the emergency department today with blood in his urine and low back pain. Patient states that he has noticed blood in his blood as of late as well as his chronic low back pain. Patient denies any dizziness, lightheadedness, abdominal pain, nausea, vomiting, fever, chills, blurry vision, double vision, loss of vision, chest pain, difficulty breathing, shortness of breath, night sweats, pain with urination, increased urinary frequency, increased urinary urgency, blood in his stool, syncope or a near syncopal episode, recent trauma or falls, bowel incontinence, bladder incontinence, bowel retention, bladder retention, or any other complaints at this time. Onset (ago): hour(s) Severity: mild Relieving factors: none Exacerbating factors: none Associated symptoms: denies other symptoms Treatments prior to arrival: none Related Data Home Medications Medication Instructions Recorded Confirmed atorvastatin 20 mg tablet 20 mg PO DAILY 09/01/20 clotrimazole 1 % topical cream 1 applic topical QAM AND QHS 09/01/20 metoprolol tartrate 25 mg tablet 25 mg PO BID 09/01/20 varicella-zoster glycoE [id number] IM ONCE 09/01/20 adj(PF) 50 mcg/0.5 mL IM susp, kit Previous Rx's Medication Instructions Recorded cephalexin 500 mg capsule 500 mg PO BID #14 caps 05/16/22 doxycycline hyclate 100 mg tablet 100 mg PO BID #14 tabs 05/22/22 mupirocin 2 % topical ointment 1 appl topical TID #15 grams 05/22/22 benzonatate 100 mg capsule 100 mg PO TID PRN cough #30 caps 07/28/22 codeine 10 mg-guaifenesin 100 mg/5 5 ml PO Q6H PRN cough #60 mL 07/28/22 mL oral liquid (Guaiatussin AC) rivaroxaban 20 mg tablet (Xarelto) 20 mg PO DAILY AFIB with RVR #30 07/28/22 tabs cefuroxime axetil 250 mg tablet 250 mg PO BID 7 days #14 tabs 11/27/23 Allergies Allergy/AdvReac Type Severity Reaction Status Date / Time poison jessika extract Allergy Unknown RASH Verified 07/28/22 12:22 [POISON JESSIKA] Review of Systems 2 Constitutional: Constitutional: Reports no additional constitutional complaints, Denies chills, Denies fever(s) and Denies night sweats Eyes: Eyes: Reports no additional eye complaints, Denies blurry vision, Denies change in vision, Denies diplopia, Denies eye discharge, Denies loss of vision and Denies eye pain ENT: Denies dizziness Cardiovascular: Cardiovascular: Reports no additional cardiovascular complaints, Denies chest pain, Denies lightheadedness, Denies Loss of Consciousness and Denies dyspnea Respiratory: Respiratory: Reports no additional respiratory complaints and Denies dyspnea Gastrointestinal: Gastrointestinal: Reports no additional gastrointestinal complaints, Denies abdominal pain, Denies melena, Denies hematochezia, Denies change in bowel habits and Denies change in stool character Genitourinary: Genitourinary: Reports no additional male genitourinary complaints, Reports hematuria, Denies oliguria, Denies difficulty urinating, Denies dysuria, Denies urinary frequency, Denies urinary hesitancy, Denies urinary incontinence and Denies urinary urgency Musculoskeletal: Musculoskeletal: Reports no additional musculoskeletal complaints, Reports back pain, Denies numbness and Denies tingling Neurologic: Denies dizziness, Denies loss of vision, Denies numbness and Denies tingling Psychiatric: Psychiatric: Reports no additional psychiatric complaints Endocrine: Endocrine: Reports no additional endocrine complaints Hematologic/Lymphatic: Hematologic/Lymphatic: Reports no additional hematologic/lymphatic complaints Allergic/Immunologic: Allergic/Immunologic: Reports no additional allergic/immunologic complaints PMFSH Past Medical History Attestation statement: The following information was validated with the patient. Source: old records reviewed and nursing notes reviewed Onset Date is defined in the Problem List Problems that require an onset date and time if occurred within 24 hrs of arrival to the ED Aortic Dissection and Rupture; Neurologic impairment; Cardiopulmonary Arrest; Endotracheal Intubation; Insertion or Replacement of Mechanical Circulatory Assist Device Medical History COVID-19 Arrhythmia Hypertension [place] spotted fever Surgical History History of tonsillectomy Social History Social History Alcohol intake: former Patient Tobacco Use Status: Never used Tobacco Advance Directives: No Advance Directives Information Provided: No Physical Exam ED Vital Signs: Vital Signs - 24 hr 11/26/23 21:03 11/27/23 00:56 Temperature 98.3 F 97.3 F Pulse Rate 71 53 Respiratory Rate 18 17 Blood Pressure 124/72 121/51 L Pulse Oximetry 94 96 Oxygen Delivery Method Room Air Room Air BMI result Body Mass Index 33.8 Const General: cooperative, no acute distress, alert and awake Nutritional Appearance: well nourished Orientation/consciousness: patient oriented x3 Limitations: no limitations HENMT Head: Yes normal to inspection and Yes atraumatic Ears: hearing grossly normal bilaterally and external ears normal General nose exam: Normal external nose present, no nasal discharge noted and no epistaxis Face and sinus: Yes normal facial exam, No abrasion and No laceration Mouth: Normal oral and palatal mucosa present, no drooling and no muffled voice Eyes General: appearance normal, both eyes and all related structures Periorbital: periorbital findings normal Eyelids: Yes eyelids normal Conjunctivae: conjunctivae normal Pupils: Equal, round and reactive pupils present EOM: EOMs intact bilaterally Neck Neck: Yes normal visual inspection, Yes full ROM and Yes no lymphadenopathy Chest Chest palpation & inspection: normal inspection of the chest Resp Effort & Inspection: normal respiratory effort and able to speak in complete sentences GI Inspection: Yes normal to inspection Neuro General: patient oriented x3 and moves all extremities Cranial nerves: Yes Equal, round and reactive pupils present Cognition (Neuro): normal cognition Motor exam (neuro): 5/5 motor strength present throughout Sensory Exam: Normal double simultaneous stimulation for sensation Coordination: [id number] test normal Extrem General: Yes normal to inspection, Yes full ROM and Yes capillary refill normal Psych Appearance: grossly normal Mental Status: mental status grossly normal Affect: normal affect Attitude: cooperative Thought process: Normal thought process present Thought content: Normal thought content present Insight: Good insight present (Psych) Course Course Course Narrative: RME performed by Yanira Dacosta PA-C. Patient is a 68 year old assigned male at presenting to the emergency department with blood in his urine. Patient states that he is on Xarelto. Labs and imaging ordered. Patient placed back in the waiting room pending room availability and results. Medical Decision Making Medical Decision Making [facility] Narrative: Patient is a 68 year old assigned male at with a history of Xarelto use and chronic low back pain presenting to the emergency department today with hematuria. Patient's physical exam was unremarkable. Patient's blood work was unremarkable. Patient's urine showed blood as well as a possible infection. Patient's CT abdomen/pelvis showed no acute process. I explained my physical exam findings as well as all test results to the patient and the patient's . I answered all questions asked by the patient and the patient's . I stressed the importance of the patient taking his medication as prescribed. I stressed the importance of the patient following up with his primary care provider and a urologist. I stressed the importance of the patient returning to the emergency department immediately if his symptoms were to worsen or if he were to develop any dizziness, shortness of breath, difficulty breathing, chest pain, blurry vision, loss of vision, nausea, vomiting, abdominal pain, fever, chills, back pain, or any other complaints. Patient and the patient's verbalized agreement and understanding with this treatment plan and discharge. Differential Diagnosis Differential Diagnoses: The differential diagnosis associated with the presentation includes Hematuria Kidney stone UTI Admission/Observation Consideration of admission/observation: Escalation of care including admission/observation considered Patient would have been admitted to the hospital had his work up had any findings where hospital admission was appropriate and his clinical presentation warranted hospital admission. Lab Data [facility] Lab Attestation statement: I reviewed the patient's lab results. My interpretation of these results are in the [facility] Rationale portion of this note. 11/26/23 22:11 11/26/23 22:11 Labs: Lab Results 11/26/23 11/26/23 Range/Units 22:11 22:19 WBC 8.6 (4.8-10.8) X10*3/uL RBC 4.32 L (4.60-5.80) X10*6/uL Hgb 13.7 L (14.0-18.0) g/dl Hct 40.7 L (42.0-52.0) % MCV 94.2 (80.0-98.0) fL MCH 31.7 (27.0-33.0) pg MCHC 33.7 (31.0-36.0) g/dl RDW 13.5 (11.0-16.0) % Plt Count 169 (160-400) X10*3/uL MPV 11.1 (9.4-12.4) fL Immature Gran % (Auto) 0.2 (0.0-0.4) % Neut % (Auto) 56.9 (45-73) % Lymph % (Auto) 27.3 (20-40) % [place] % (Auto) 11.5 H (2-11) % Eos % (Auto) 3.6 (0-4) % Baso % (Auto) 0.5 (0-2) % Lymph # (Auto) 2.4 (1.2-4.9) X10*3/uL [place] # (Auto) 1.0 (0.1-1.2) X10*3/uL Eos # (Auto) 0.3 (0.0-0.4) X10*3/uL Baso # (Auto) 0.0 (0.0-0.2) X10*3/uL Abs Immat Gran (auto) 0.02 (0.00-0.03) X10*3/uL Absolute Neuts (auto) 4.9 (2.0-8.3) x10*3/uL Absolute Nucleated RBC 0.000 (0.0-0.012) X10*3/uL Nucleated RBC % (auto) 0.0 (0.0-0.2) /100WBC Sodium 139 (135-145) mmol/L Potassium 4.0 (3.3-5.1) mmol/L Chloride 106 (96-108) mmol/L Carbon Dioxide 25 (22-29) mmol/L Anion Gap 12 (12-20) BUN 19 H (9-16) mg/dL Creatinine 0.89 (0.5-1.4) mg/dL Estim Creat Clear Calc 101.7 Estimated GFR > 60 Random Glucose 125 H (60-115) mg/dL Calcium 9.3 D (8.4-10.2) mg/dL Magnesium 2.0 (1.6-2.6) mg/dL Total Bilirubin 1.0 (0.0-1.0) mg/dL AST 24 (5-37) U/L ALT 24 (0-40) U/L Alkaline Phosphatase 61 (39-117) U/L Total Protein 7.3 (6.5-8.0) g/dL Albumin 3.9 (3.5-5.0) g/dL Urine Color RED Urine Appearance Turbid Urine pH 6.5 (5.0-9.0) Ur Specific [place] 1.015 (1.005-1.025) Urine Protein See Note (Neg-Trace) mg/dL Urine Glucose (UA) See Note (Negative) mg/dL Urine Ketones See Note (Negative) mg/dL Urine Blood See Note (Negative) Urine Nitrite See Note (Negative) Ur Leukocyte Esterase See Note (Negative) Urine RBC >20 H (0-2) /HPF Urine WBC >50 H (0-5) /HPF Ur Squamous Epith Cells 0-2 (0-2) /HPF Urine Bacteria Trace (None Seen) Hyaline Casts 0-2 (0-2) /LPF Independent Interpretation I performed an independent interpretation of an: CT Scan Interpretation: My interpretation is in agreement with the radiologist's impression of this imaging study. - + EXAMINATION: CT ABDOMEN AND PELVIS WITHOUT CONTRAST CLINICAL INFORMATION: flank pain, blood in urine. COMPARISON: No pertinent prior studies are available for comparison. TECHNIQUE: Multidetector volumetric imaging was performed from the superior aspect of the liver through the pubic symphysis without contrast per renal stone protocol. Sagittal and coronal reformatted images were obtained on the technologist workstation. This CT examination was performed using dose optimization techniques as appropriate, variously including the following: *Automated exposure control *Adjustment of mA and/or kV according to patient size (this includes techniques or standardized protocols for targeted exams where dose is matched to indication/reason for exam; i.e. extremities or head) *Use of iterative reconstruction technique DLP: 822 mGy-cm. FINDINGS: LUNG BASES: The visualized lung bases are unremarkable. LIVER, GALLBLADDER, BILIARY TREE: The non-contrast liver is normal in size, shape, and attenuation. No focal hepatic lesion or biliary ductal dilatation is present. The gallbladder is contracted but otherwise unremarkable with no evidence of radiopaque gallstones, gallbladder wall thickening, or obvious pericholecystic inflammatory changes. PANCREAS: Unremarkable. SPLEEN: Unremarkable. ADRENAL GLANDS: Unremarkable. KIDNEYS AND URETERS: The kidneys are normal in size, shape, and attenuation. No hydronephrosis, hydroureter, or perinephric stranding. No renal or ureteric calculi. BLADDER: Completely decompressed makes evaluation for subtle abnormalities difficult GASTROINTESTINAL TRACT: Scattered colonic diverticulosis but no obvious colonic wall thickening or pericolonic inflammatory change to suggest diverticulitis. Normal-appearing appendix in the right lower quadrant. Visualized small bowel unremarkable. Stomach is distended. ABDOMINAL WALL: No significant hernia is appreciated. LYMPHOVASCULAR STRUCTURES: Mild vascular calculation within the aorta iliac system. No bulky adenopathy. PELVIC VISCERA: Unremarkable. OSSEUS STRUCTURES: Degenerative changes in the spine CT/CT abdomen pelvis wo IV con IMPRESSION: No acute intra-abdominal process seen. No renal or ureteric calculi. No obstructive changes to the kidneys. Dictated By: Tramaine Valdivia MD Signed By: Electronically signed by Tramaine Valdivia MD 11/26/23 6906 Radiology Impression Discussion of test interpretation with radiology: I have reviewed the radiologist's reading. Independent Historian Clinical information obtained from an independent historian. History obtained from or confirmed by: Spouse (patient's provided additional history and confirmed the history provided by the patient.) Prescription Management I considered prescription management with: Antibiotic (patient prescribed an antibiotic to cover UTI) Chronic Conditions Patient?s care impacted by: Other (Xarelto use) Discharge Plan Discharge Clinical Impression: Urinary tract infection, Hematuria Patient Disposition: Home, Self-Care Instructions: Urinary Tract Infection in Men (DC), Hematuria (ED) Additional Instructions: Follow up with your primary care provider and a urologist. Return to the emergency department immediately if your symptoms worsen or if you develop any dizziness, shortness of breath, difficulty breathing, chest pain, blurry vision, loss of vision, nausea, vomiting, abdominal pain, fever, chills, back pain, or any other complaints. Prescriptions: New cefuroxime axetil 250 mg tablet 250 mg PO BID 7 Days Qty: 14 0RF No Action cephalexin 500 mg capsule 500 mg PO BID Qty: 14 0RF doxycycline hyclate 100 mg tablet 100 mg PO BID Qty: 14 0RF mupirocin 2 % ointment 1 appl topical TID Qty: 15 0RF Rx Instructions: Apply to the wound 3 times a day for 5 days. Xarelto 20 mg tablet 20 mg PO DAILY Qty: 30 0RF Rx Instructions: must administer with evening meal benzonatate 100 mg capsule 100 mg PO TID PRN (Reason: cough) Qty: 30 0RF codeine-guaifenesin [Guaiatussin AC] 10-100 mg/5 mL liquid 5 ml PO Q6H PRN (Reason: cough) Qty: 60 0RF Referrals: [facility] [Provider Group] (Call to establish and follow up with a urologist.) Olivia Greenwood MD [Primary Care Provider] - Interventions: ED Discharge Assessment Last Done: 11/27/23 01:01 Discharge Date/Time: 11/27/23 01:02 Print Language: Stateless
--- NOTE | 2023-11-26 22:13 | MHC.EDTECH ---
Patient blood drawn and sent to lab .
[2023-11-26 22:16] LABS: Basophils Percent Auto 0.5 % (0-2); Eosinophils Absolute Auto 0.3 X10*3/uL (0.0-0.4); Eosinophils Percent Auto 3.6 % (0-4); Hematocrit 40.7 % (42.0-52.0); Hemoglobin 13.7 g/dl (14.0-18.0); Imm Gran Abs Auto 0.02 X10*3/uL (0.00-0.03); Imm Gran Pct Auto 0.2 % (0.0-0.4); Lymphocytes Absolute Auto 2.4 X10*3/uL (1.2-4.9); Lymphocytes Percent Auto 27.3 % (20-40); MANUAL DIFF FLAG NO; Mean Corpuscular HGB Conc 33.7 g/dl (31.0-36.0); Mean Corpuscular Hemoglobin 31.7 pg (27.0-33.0); Mean Corpuscular Volume 94.2 fL (80.0-98.0); Mean Platelet Volume 11.1 fL (9.4-12.4); Monocytes Percent Auto 11.5 % (2-11); Neutrophils Absolute Auto 4.9 x10*3/uL (2.0-8.3); Neutrophils Percent Auto 56.9 % (45-73); Platelet Count 169 X10*3/uL (160-400); Red Blood Count 4.32 X10*6/uL (4.60-5.80); Red Cell Distribution Width 13.5 % (11.0-16.0); White Blood Count 8.6 X10*3/uL (4.8-10.8)
--- NOTE | 2023-11-26 22:24 | MHC.EDTECH ---
Patient urine sample collected and sent to lab .
[2023-11-26 22:31] LABS: Alanine Aminotransferase 24 U/L (0-40); Albumin Level 3.9 g/dL (3.5-5.0); Alkaline Phosphatase 61 U/L (39-117); Anion Gap 12 (12-20); Aspartate Amino Transferase 24 U/L (5-37); Blood Urea Nitrogen 19 mg/dL (9-16); Calcium 9.3 mg/dL (8.4-10.2); Carbon Dioxide 25 mmol/L (22-29); Chloride 106 mmol/L (96-108); Creatinine Clr Calc Pharmacy 101.7; Estimated Glomerular Filt Rate > 60; Glucose Random 125 mg/dL (60-115); Sodium 139 mmol/L (135-145); Total Protein 7.3 g/dL (6.5-8.0)
[2023-11-26 22:34] LABS: Appearance Urine Turbid; Color Urine RED; PH 6.5 (5.0-9.0); Specific Gravity - Urine 1.015 (1.005-1.025); UMIC TRIGGER UACC YES
[2023-11-26 22:48] LABS: Bacteria Urine Trace (None Seen); Hyaline Casts Urine 0-2 /LPF (0-2); Squamous Epithelial Cell Urine 0-2 /HPF (0-2); UACC Culture Trigger YES; WBC Urine >50 /HPF (0-5)
[2023-11-26 22:49] LABS: RBC Urine >20 /HPF (0-2)
[2023-11-27 00:56] VITALS: BP 121/51; PULSE 53; RESP 17; TEMP 36.3; O2SAT 96
== END 2023-11-27 01:02 | disposition home or self-care (01) ==
PROVIDERS: Physician Assistant Medical; Emergency Provider Internal Medicine; PCP Internal Medicine
DX: N39.0 Urinary tract infection, site not specified (principal); R31.9 Hematuria, unspecified; I10 Essential (primary) hypertension; Z79.02 Long term (current) use of antithrombotics/antiplatelets; Z79.899 Other long term (current) drug therapy
CPT/HCPCS: 36415; 74176; 80053; 81001; 83735; 85025; 87086; 99283; 99284

== ENCOUNTER 2024-01-01 11:13 | Outpatient (AMB) | payer MEDICARE, SELFPAY ==
--- NOTE | 2024-01-01 11:27 | MHC.OFFVIS ---
Intake Intake Visit Reasons: hematuria Intake Note: NEW Patient presents today to established treatment for: Hematuria Meds- None Allergies to Antibiotic- No Known Allergies Blood Thinner- Xarelto Patient Symptoms: Patient relates about two weeks ago, he was experiencinng visible blood in the urine(blood clots) with a fleshy appearance. Hydraulic Tester Required: No Accompanied by: Self / Same As Patient Allergies poison jessika extract [POISON JESSIKA] Allergy (Unknown, Verified 01/01/24 21:45) RASH Medication List - Last Reconciled 01/01/24 by ANNE Castorena- atorvastatin 20 mg PO DAILY clotrimazole 1% 1 appl topical QAM AND QHS metoprolol tartrate 25 mg PO BID rivaroxaban (Xarelto) 20 mg PO DAILY HPI HPI Comments History of Present Illness Details Devonte is a very pleasant 68-year-old male patient of Dr. Greenwood. He has a past medical history of arrhythmia, hypertension, back pain, and [place] spotted fever. He presents to the office today as a new patient for gross hematuria. In discussion with the patient today he reports noting ongoing episodes of intermittent gross hematuria since the beginning of this year. He reports within the last 2 weeks he has not seen any hematuria. He reports having seeked emergency room care for further assessment evaluation. It appears CT KUB was ordered. These results reviewed with the patient today. The kidneys are normal in size, shape, and attenuation. No hydronephrosis, hydroureter, or perinephric stranding. No renal calculi or ureteral calculi noted. The bladder is completely decompressed making evaluation for subtle abnormality difficult per radiology report. She reports noting gross hematuria started right after carrying logs of wood. He also reports during episodes of gross hematuria he notes lower left back pain however is unsure if this is related to hematuria or his longstanding history of back pain. 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 He otherwise denies any previous smoking history. Discussed at length potential causes for gross hematuria. Discussed obtaining CT urogram for further assessment evaluation as well as urine cytology and in office cystoscopy. Discussed risks and benefits of further workup versus surveillance monitoring. In office urinalysis results today with 2+ microscopic hematuria. He otherwise denies urinary urgency, urinary frequency, incontinence, nocturia, dysuria, foul smelling urine, changes to urinary stream, flank pain, fever, and or chills. [facility] Medical History COVID-19 Arrhythmia Hypertension [place] spotted fever Surgical History History of tonsillectomy Social History Alcohol intake: former Patient Tobacco Use Status: Never used Tobacco Review of Systems Const Reports as per HPI Eyes Reports no additional complaints ENT Reports no additional complaints Card Reports as per HPI Resp Reports no additional complaints GI Reports no additional complaints Reports as per HPI Musc Reports as per HPI Neuro Reports no additional complaints Psych Reports no additional complaints Endo Reports no additional complaints Aman/Lymph Reports no additional complaints Aller/Immun Reports no additional complaints Physical Exam Const General: cooperative, healthy appearing, comfortable, no acute distress, well developed, alert and awake Orientation/consciousness: patient oriented x3 Limitations: no limitations HEENT Head: Yes normal to inspection, Yes normocephalic and Yes atraumatic Ears: hearing grossly normal bilaterally Eyes General: appearance normal, both eyes and all related structures Neck Neck: Yes normal visual inspection and Yes trachea midline Chest Chest palpation & inspection: normal inspection of the chest Resp Effort & Inspection: normal respiratory effort and able to speak in complete sentences Cardio Rate: regular rate GI Inspection: Yes normal to inspection General: Yes no CVA tenderness Back/Spine/Pelvis Back: no CVA tenderness Skin General skin exam: no rashes or lesions noted Neuro General: patient oriented x3 Extrem General: Yes normal to inspection Psych Appearance: grossly normal and well kempt Mental Status: mental status grossly normal Speech and movement: Normal speech and movement present and Clear speech present Affect: normal affect Attitude: cooperative Thought process: Normal thought process present Thought content: Normal thought content present Insight: Fair insight present (Psych) Judgement: Fair judgement present (Psych) Results AMB Urinalysis, Automated UA Leukoctes 0 Rafi/uL Last Edit by Sara Weber CMA on 01/01/24 11:48 UA Nitrite Negative Last Edit by Sara Weber CMA on 01/01/24 11:48 UA Urobilinogen 0.2 mg/dL Last Edit by Sara Weber CMA on 01/01/24 11:48 UA Protein 0 mg/dL Last Edit by Sara Weber CMA on 01/01/24 11:48 UA pH 6.0 Last Edit by Sara Weber CMA on 01/01/24 11:48 UA Blood 25 Ronni/uL Last Edit by Sara Weber CMA on 01/01/24 11:57 UA Blood previously reported as 25 [facility] 01/01/24 11:50 [facility]A [facility] 01/01/24 11:57 UA Specific [place] 1.005 Last Edit by Sara Weber CMA on 01/01/24 11:57 UA Specific [place] previously reported as 1.010 [facility] 01/01/24 11:57 UA Ketone Negative Last Edit by Sara Weber CMA on 01/01/24 11:48 UA Bilirubin 0 mg/dL Last Edit by Sara Weber CMA on 01/01/24 11:48 UA Glucose 0 mg/dL Last Edit by Sara Weber CMA on 01/01/24 11:48 Results Reviewed Results Reviewed: Laboratory Last Values Urine pH (Auto) 6.0 01/01/24 11:30 Specific [place] (Auto) 1.005 01/01/24 11:30 Urine Protein (Auto) 0 mg/dL 01/01/24 11:30 Glucose (UA)(Auto) 0 mg/dL 01/01/24 11:30 Urine Ketones (Auto) Negative 01/01/24 11:30 Urine Blood (Auto) 25 Ronni/uL 01/01/24 11:30 Urine Nitrite (Auto) Negative 01/01/24 11:30 Urine Bilirubin (Auto) 0 mg/dL 01/01/24 11:30 Urine Urobilinogen (Auto) 0.2 mg/dL 01/01/24 11:30 Leukocyte Esterase (Auto) 0 Rafi/uL 01/01/24 11:30 Date of Service: 11/26/23 EXAMINATION: CT ABDOMEN AND PELVIS WITHOUT CONTRAST FINDINGS: LUNG BASES: The visualized lung bases are unremarkable. LIVER, GALLBLADDER, BILIARY TREE: The non-contrast liver is normal in size, shape, and attenuation. No focal hepatic lesion or biliary ductal dilatation is present. The gallbladder is contracted but otherwise unremarkable with no evidence of radiopaque gallstones, gallbladder wall thickening, or obvious pericholecystic inflammatory changes. PANCREAS: Unremarkable. SPLEEN: Unremarkable. ADRENAL GLANDS: Unremarkable. KIDNEYS AND URETERS: The kidneys are normal in size, shape, and attenuation. No hydronephrosis, hydroureter, or perinephric stranding. No renal or ureteric calculi. BLADDER: Completely decompressed makes evaluation for subtle abnormalities difficult GASTROINTESTINAL TRACT: Scattered colonic diverticulosis but no obvious colonic wall thickening or pericolonic inflammatory change to suggest diverticulitis. Normal-appearing appendix in the right lower quadrant. Visualized small bowel unremarkable. Stomach is distended. ABDOMINAL WALL: No significant hernia is appreciated. LYMPHOVASCULAR STRUCTURES: Mild vascular calculation within the aorta iliac system. No bulky adenopathy. PELVIC VISCERA: Unremarkable. OSSEUS STRUCTURES: Degenerative changes in the spine IMPRESSION: No acute intra-abdominal process seen. No renal or ureteric calculi. No obstructive changes to the kidneys. Assessment & Plan Assessment & Plan (1) Gross hematuria: Code(s): R31.0 - Gross hematuria Plan In office urinalysis results reviewed with the patient today; as noted above; will send for urine cytology. Recent CT KUB results reviewed with the patient; as noted above. Discussed obtaining CT urogram as patient with a history of chemical exposure Will obtain BUN, creatinine, and PSA for further assessment evaluation. Discussed at length potential causes for gross hematuria patient has been experiencing. Discussed further workup with imaging, urine cytology, and in office cystoscopy; this was discussed at length; discussed risks and benefits of further workup versus surveillance monitoring. Follow-up in office cystoscopy with imaging, and labs to be completed prior; or sooner with any issues, concerns, and or questions. Orders: Orders AMB Urinalysis Automated Today R33.9 - Retention of urine, unspecified Blood Urea Nitrogen Today R31.0 - Gross hematuria CT urogram Today R31.0 - Gross hematuria Urine Cytology Today R31.9 - Hematuria, unspecified Creatinine Today R31.0 - Gross hematuria Prostate Specific Antigen Today R31.0 - Gross hematuria Patient Instructions: The patient had an opportunity to ask questions regarding the treatment plan. All questions were answered. Physical exam, labs, and imaging were discussed and reviewed in detail. As well as risks, benefits, and discussion of treatment choices. No major barriers to understanding were identified. The patient expressed understanding and agreement with the above treatment plan. The patient was made aware they should contact our office by phone for worsening of their current condition, the appearance of new symptoms, or with any questions or concerns. Compliance is encouraged with any medications and follow up testing that is ordered. It is a privilege to be allowed the opportunity to participate in? your urological care.? Again, if you have any questions or concerns If you have any questions or concerns please do not hesitate to contact me. The office is [phone]. This note is constructed using voice recognition software. While every effort has been made to ensure accuracy assistant food service director errors may have been included. Yours sincerely, JOVANI Castorena Coding Level of Care Code New Pt Level 3 (44494) Diagnoses Gross hematuria R31.0
== END 2024-01-01 12:12 | disposition home or self-care (01) ==
PROVIDERS: PCP Internal Medicine; Visit Provider Nurse Practitioner Family
DX: R31.0 Gross hematuria (principal)
CPT/HCPCS: 99203

== ENCOUNTER 2024-01-01 11:13 | Outpatient (REF) | payer MEDICARE, SELFPAY | END 2024-01-01 11:14 | disposition home or self-care (01) | LOC: HO.LAB 11:13 | PROVIDERS: PCP Internal Medicine; Visit Provider Nurse Practitioner Family | DX: Z13.89 Encounter for screening for other disorder (principal) | CPT/HCPCS: 81003 ==

== ENCOUNTER 2024-01-01 12:08 | Outpatient (REF) | payer MEDICARE, SELFPAY ==
[2024-01-01 13:46] LABS: Urine Cytology See Pathology rpt
[2024-01-01 13:55] LABS: Blood Urea Nitrogen 13 mg/dL (9-16); Estimated Glomerular Filt Rate > 60
[2024-01-01 14:19] LABS: Prostate Specific Antigen 0.52 ng/mL (<0.05-4.0)
== END 2024-01-01 12:09 | disposition home or self-care (01) ==
LOC: HO.LAB 12:08
PROVIDERS: Visit Provider Nurse Practitioner Family
DX: Z12.5 Encounter for screening for malignant neoplasm of prostate (principal); R31.0 Gross hematuria
CPT/HCPCS: 36415; 81003; 82565; 84153; 84520; 88112; 99202

== ENCOUNTER 2024-02-14 14:54 | Outpatient (AMB) | payer MEDICARE, SELFPAY ==
--- NOTE | 2024-02-14 14:55 | A.OFFVIS_ITS ---
Intake Intake Visit Reasons: cysto Intake Note: Patient presents today for a Cystoscopy Meds: None Allergies to Antibiotic: No Known Allergies Blood Thinner: Xarelto Urinalysis test clear for Cysto? Yes Disposable Uro-G Cystoscope Cannula: Lot: [id number] Exp: 09/20/2026 Reel Operator Required: No Accompanied by: Self / Same As Patient Allergies poison jessika extract [POISON JESSIKA] Allergy (Unknown, Verified 02/14/24 14:57) RASH HPI HPI Comments History of Present Illness Details Devonte is a pleasant male. He has a patient of Dr. Greenwood. 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 Gross hematuria CT KUB normal Urogram pending Denies prostate symptomatology Six-month follow-up [facility] Medical History COVID-19 Arrhythmia Hypertension [place] spotted fever Surgical History History of tonsillectomy Social History Alcohol intake: former Patient Tobacco Use Status: Never used Tobacco Review of Systems Const Denies chills and Denies fever(s) Card Reports no additional complaints and Denies syncope Resp Denies cough GI Denies abdominal pain and Denies heartburn Reports as per HPI and Denies change in libido Neuro Denies syncope Psych Denies change in libido Endo Denies change in libido Physical Exam Const General: cooperative, healthy appearing, comfortable and no acute distress Orientation/consciousness: patient oriented x3 HEENT Face and sinus: Yes normal facial exam Mouth: moist mucous membranes Neck Neck: Yes normal visual inspection, Yes full ROM and Yes trachea midline Chest Chest palpation & inspection: normal inspection of the chest Resp Effort & Inspection: normal respiratory effort, able to speak in complete sentences and no respiratory distress GI Inspection: Yes normal to inspection Back/Spine/Pelvis Cervical Spine: normal cervical lordosis Thoracic/Lumbar Spine: thoracic and lumbar spine normal to inspection Skin General skin exam: no rashes or lesions noted Neuro General: patient oriented x3, gait normal, tone normal and moves all extremities Extrem General: Yes normal to inspection and Yes capillary refill normal Office Procedures Cystoscopy Consent Discussed risk and benefit or proposed procedure with the patient. Information consent for procedure given to the patient. Discussed technical aspects, risks, benefits and alternatives in full. Addressed all of the patient's questions and concerns regarding the procedure. The patient demonstrated knowledge and understanding. They wish to proceed with this procedure. Preparation The patient was prepped in the usual manner. A solutions executive cloud sales was present and in the room. Genitalia was prepped with betadine solution in a sterile manner. Lidocaine Jelly 2% was placed into the urethra and 16Fr flexible Olympus cystoscope was inserted into the meatus after adequate lubrication. Procedure Meatus circumcised Urethra anterior and posterior urethra Prostatic Urethra long prostate Bladder examination with retroflexion of cystoscope Bladder Orifices normal shape and position Bladder Capacity medium Trabeculations mild trabeculation Cellule Formation yes Diverticulum Formation ----- Mucosal Erythema - Bladder Tumor - [id number] DISPOSABLE SCOPE URO-G FLEXIBLE SCOPE Procedure code (CPT) selection complete Office Meds lidocaine HCl 2 % mucosal jelly in applicator Performing Provider: Rufus Bailey MD Performing Location: [facility] Administered by: Abbi Blake RN on 02/14/24 15:14 Dose Route Admin Location Dispensed Lot Number Expiration Date ND Terminal [place] 10 mL intra-urethral 10 mL nitrofurantoin monohydrate/macrocrystals 100 mg capsule Performing Provider: Rufus Bailey MD Performing Location: [facility] Administered by: Abbi Blake RN on 02/14/24 15:14 Dose Route Admin Location Dispensed Lot Number Expiration Date NDC Terminal [place] 100 mg PO 1 cap naproxen 500 mg tablet Performing Provider: Rufus Bailey MD Performing Location: [facility] Administered by: Abbi Blake RN on 02/14/24 15:14 Dose Route Admin Location Dispensed Lot Number Expiration Date ND Terminal Carman 500 mg PO 1 tab Results AMB Urinalysis, Automated UA Leukoctes 0 Rafi/uL Last Edit by Sara Weber CMA on 02/14/24 15 :11 UA Nitrite Negative Last Edit by Sara Weber CMA on 02/14/24 15: 11 UA Urobilinogen 0.2 mg/dL Last Edit by Sara Weber CMA on 03/21/2 4 15:11 UA Protein 0 mg/dL Last Edit by Sara Weber [facility] on 02/14/24 15:11 UA pH 6.0 Last Edit by Sara Weber [facility] on 02/14/24 15:11 UA Blood 25 Ronni/uL Last Edit by [facility], [facility] on 02/14/24 15:11 UA Specific [place] 1.005 Last Edit by Sara Webermajor Millera [facility] on 15:11 UA Ketone Negative Last Edit by Sara Webermajor Millera [facility] on 02/14/24 15:1 1 UA Bilirubin 0 mg/dL Last Edit by [facility] on 02/14/24 15: 11 UA Glucose 0 mg/dL Last Edit by Sara Webermajor Weber [facility] on 02/14/24 15:11 Results Reviewed Results Reviewed: Laboratory Last Values Urine pH (Auto) 6.0 02/14/24 14:58 Specific [place] (Auto) 1.005 02/14/24 14:58 Urine Protein (Auto) 0 mg/dL 02/14/24 14:58 Glucose (UA)(Auto) 0 mg/dL 02/14/24 14:58 Urine Ketones (Auto) Negative 02/14/24 14:58 Urine Blood (Auto) 25 Ronni/uL 02/14/24 14:58 Urine Nitrite (Auto) Negative 02/14/24 14:58 Urine Bilirubin (Auto) 0 mg/dL 02/14/24 14:58 Urine Urobilinogen (Auto) 0.2 mg/dL 02/14/24 14:58 Leukocyte Esterase (Auto) 0 Rafi/uL 02/14/24 14:58 Assessment & Plan Assessment & Plan (1) Gross hematuria: Code(s): R31.0 - Gross hematuria Plan Six-month follow-up Orders: Orders AMB Cystoscopy Today R31.0 - Gross hematuria AMB Urinalysis Automated Today R33.9 - Retention of urine, unspecified Patient Instructions: Imaging studies, laboratory and physical exam results were discussed and reviewed in detail. No major barriers to patient understanding were identified. An opportunity to ask questions regarding the treatment plan was provided. All questions were answered. The patient expressed understanding and agreement with the above treatment plan. The patient is aware they should contact our office by phone for worsening of their current condition or the appearance of new urologic symptoms. Compliance is encouraged with any medications and followup testing that is ordered. It is a privilege to participate in the urologic care of your patient. If you have any questions or concerns regarding treatment for the above conditions, or other urologic issues, please do not hesitate to contact me. The office telephone contact is [phone]. This note is constructed using voice recognition software. While every effort has been made to ensure accuracy medical manager errors may have been included. Yours sincerely, Dr Rufus Bailey MD, [facility] - Urology Providers of Expert, Compassionate Care for the Genitourinary System Coding Level of Care Code Est Pt Level 3 (62873) Diagnoses Gross hematuria R31.0 CPT Codes Cystoscopy - CPT: [id number] ([id number])
== END 2024-02-14 15:43 | disposition home or self-care (01) ==
PROVIDERS: PCP Internal Medicine; Visit Provider Urology
DX: R31.0 Gross hematuria (principal); R33.9 Retention of urine, unspecified
CPT/HCPCS: 52000

== ENCOUNTER → 2024-02-14 14:54 | Outpatient (BNVA) | payer MEDICARE, SELFPAY | PROVIDERS: PCP Internal Medicine; Visit Provider Urology | DX: R31.0 Gross hematuria (principal); R33.9 Retention of urine, unspecified | CPT/HCPCS: 52000; 81003 ==

== ENCOUNTER 2024-03-05 07:55 | Outpatient (REF) | payer MEDICARE, SELFPAY ==
--- NOTE | ~2024-03-05 | CT_ITS ---
EXAMINATION: CT UROGRAM WITHOUT AND WITH CONTRAST CLINICAL INFORMATION: Reason for Exam R31.0 - Gross hematuria COMPARISON: 11/26/2023 TECHNIQUE: Helical scanning was performed with collimation through the abdomen and pelvis precontrast. Helical scanning was then repeated with submillimeter collimation through the abdomen and pelvis in the pyelogram phase with use of 85 mL of Omnipaque 300 intravenous contrast. Sagittal and coronal 2-D reconstructions were obtained. Multiple additional 3-D volume rendered images were obtained of the kidneys and collecting systems on an independent workstation under concurrent supervision. This CT examination was performed using dose optimization techniques as appropriate, variously including the following: *Automated exposure control *Adjustment of mA and/or kV according to patient size (this includes techniques or standardized protocols for targeted exams where dose is matched to indication/reason for exam; i.e. extremities or head) *Use of iterative reconstruction technique DLP: 1183.47 mGy-cm FINDINGS: LUNG BASES: Unremarkable. ABDOMINAL AND PELVIC WALL: Bilateral fat-containing inguinal hernias. LIVER AND BILIARY TREE: Hepatic steatosis. No focal hepatic lesion or intrahepatic biliary ductal dilatation. GALLBLADDER: Unremarkable. PANCREAS: Unremarkable. SPLEEN: Unremarkable. ADRENAL GLANDS: Unremarkable. KIDNEYS AND URETERS: Right renal punctate upper pole nonobstructing stone. The kidneys are normal in size, shape, and attenuation. No hydronephrosis or hydroureter seen. No perinephric stranding. No obvious mass lesion or filling defect is seen in the collecting systems or ureters. GASTROINTESTINAL TRACT: Scattered colonic diverticulosis, no findings of diverticulitis. Status post appendectomy. VASCULAR: Aortic atherosclerotic calcification, no aneurysmal dilation. LYMPH NODES/PERITONEUM: No lymphadenopathy. FREE FLUID: None. BLADDER: Unremarkable. PELVIC VISCERA: Unremarkable. OSSEOUS STRUCTURES: Degenerative changes of the spine. CT/CT urogram IMPRESSION: * Right renal punctate upper pole nonobstructing stone. No hydronephrosis or hydroureter. No obvious mass lesion or filling defect is seen in the collecting systems or ureters. Please note, this does not obviate the need for cystoscopy if clinically warranted. * Hepatic steatosis.
[2024-03-05] MEDS: iohexoL 350 MG/ML 100 ML INFUS..BTL IV (09:20)
[2024-03-06 08:39] LABS: Creatinine POC 0.8 mg/dL (0.5-1.4); GFR POC > 60
== END 2024-03-05 07:56 | disposition home or self-care (01) ==
LOC: HO.CT 07:55
PROVIDERS: PCP Internal Medicine; Visit Provider Nurse Practitioner Family
DX: R31.0 Gross hematuria (principal)
CPT/HCPCS: 74178; 82565; Q9967

== ENCOUNTER 2024-08-18 08:29 | Outpatient (REF) | payer MEDICARE, SELFPAY ==
[2024-08-18 17:11] LABS: Urine Cytology See Pathology rpt
== END 2024-08-18 08:30 | disposition home or self-care (01) ==
LOC: HO.LNP 08:29
PROVIDERS: PCP Internal Medicine; Visit Provider Nurse Practitioner Family
DX: R10.9 Unspecified abdominal pain (principal); R31.0 Gross hematuria; R31.29 Other microscopic hematuria; N20.0 Calculus of kidney; Z84.1 Family history of disorders of kidney and ureter
CPT/HCPCS: 81003; 88112; 99212

== ENCOUNTER 2024-08-18 08:29 | Outpatient (AMB) | payer MEDICARE, SELFPAY ==
--- NOTE | 2024-08-18 08:30 | A.OFFVIS_ITS ---
Intake Visit Reasons: 6m/UA Intake Note: Patient presents today for follow up on: Hematuria Meds- None Allergies to Antibiotic- No Known Allergies Blood Thinner- Xarelto Signals Collector/Analyst Required: No Accompanied by: Self / Same As Patient Allergies poison jessika extract [POISON JESSIKA] Allergy (Unknown, Verified 08/18/24 09:54) RASH Medication List - Last Reconciled 08/18/24 by ANNE Castorena-SHIMA atorvastatin 80 mg PO DAILY metoprolol tartrate 50 mg PO BID rivaroxaban (Xarelto) 20 mg PO DAILY HPI Comments Details: Devonte is a very pleasant 69-year-old male patient of Dr. Greenwood. He has a past medical history of arrhythmia, hypertension, back pain, and Sam mountain spotted fever. He presents to the office today for follow-up of his gross hematuria. Of note, during last office visit approximately 6 months ago patient underwent an office cystoscopy 02/[address] Bailey that noted minimal abnormalities. Long prostate with no median lobe. Previous workup has included a CT urogram 03/19 that notes right renal punctate upper pole nonobstructing stone. The kidneys are normal in size, shape, and attenuation. No hydronephrosis or hydroureter seen. No perinephric stranding. No obvious mass lesion or filling defect is seen in the collecting system or ureters. The bladder is unremarkable. 01/19 Urine Cytology: Negative for high-grade urothelial carcinoma. In discussion with the patient today he reports to be doing and feel ing well. He denies any episodes of gross hematuria since his last office visit here approximately 6 months ago. However he does report noting bilateral flank pain left side greater than right. No CVA tenderness bilaterally noted on exam today. 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 Discussed obtaining renal ultrasound for further assessment evaluation given previous CT noted punctate stones. In office urinalysis results reviewed with the patient today 2+ microscopic hematuria. He otherwise denies urinary urgency, urinary frequency, incontinence, nocturia, dysuria, foul smelling urine, changes to urinary stream, fever, and or chills. He otherwise offers no other issues or concerns at this time. [facility] Medical History COVID-19 Arrhythmia Hypertension [place] spotted fever Surgical History History of tonsillectomy Social History Alcohol intake: former Patient Tobacco Use Status: Never used Tobacco Review of Systems Const Reports as per HPI Eyes Reports no additional complaints ENT Reports no additional complaints Card Reports as per HPI Resp Reports no additional complaints GI Reports no additional complaints Reports as per HPI Musc Reports as per HPI Neuro Reports no additional complaints Psych Reports no additional complaints Endo Reports no additional complaints Aman/Lymph Reports no additional complaints Aller/Immun Reports no additional complaints Physical Exam Const General: cooperative, healthy appearing, comfortable, no acute distress, well developed, alert and awake Orientation/consciousness: patient oriented x3 Limitations: no limitations HEENT Head: Yes normal to inspection, Yes normocephalic and Yes atraumatic Ears: hearing grossly normal bilaterally Eyes General: appearance normal, both eyes and all related structures Neck Neck: Yes normal visual inspection and Yes trachea midline Chest Chest palpation & inspection: normal inspection of the chest Resp Effort & Inspection: normal respiratory effort and able to speak in complete sentences Cardio Rate: regular rate GI Inspection: Yes normal to inspection General: Yes no CVA tenderness Back/Spine/Pelvis Back: no CVA tenderness Skin General skin exam: no rashes or lesions noted Neuro General: patient oriented x3 Extrem General: Yes normal to inspection Psych Appearance: grossly normal and well kempt Mental Status: mental status grossly normal Speech and movement: Normal speech and movement present and Clear speech present Affect: normal affect Attitude: cooperative Thought process: Normal thought process present Thought content: Normal thought content present Insight: Fair insight present (Psych) Judgement: Fair judgement present (Psych) Results AMB Urinalysis, Automated UA Leukoctes 0 Rafi/uL Last Edit by Herminia Nicolas on 08/18/24 08:47 UA Nitrite Last Edit by Herminia Nicolas on 08/18/24 08:47 UA Urobilinogen 0.2 mg/dL Last Edit by Herminia Nicolas on 08/18/24 08:47 UA Protein 0 mg/dL Last Edit by Herminia Nicolas on 08/18/24 08:47 UA pH 6.0 Last Edit by Herminia Nicolas on 08/18/24 08:47 UA Blood 80 Ronni/uL Last Edit by Herminia Nicolas on 08/18/24 08:47 UA Specific [place] 1.025 Last Edit by Cabre[place] Nicolas on 08/18/24 08:47 UA Ketone Last Edit by Herminia Nicolas on 08/18/24 08:47 UA Bilirubin 0 mg/dL Last Edit by Herminia Nicolas on 08/18/24 08:47 UA Glucose 0 mg/dL Last Edit by Herminia Nicolas on 08/18/24 08:47 Results Reviewed Results Reviewed: Laboratory Last Values Urine pH (Auto) 6.0 08/18/24 08:46 Specific [place] (Auto) 1.025 08/18/24 08:46 Urine Protein (Auto) 0 mg/dL 08/18/24 08:46 Glucose (UA)(Auto) 0 mg/dL 08/18/24 08:46 Urine Blood (Auto) 80 Ronni/uL 08/18/24 08:46 Urine Bilirubin (Auto) 0 mg/dL 08/18/24 08:46 Urine Urobilinogen (Auto) 0.2 mg/dL 08/18/24 08:46 Leukocyte Esterase (Auto) 0 Rafi/uL 08/18/24 08:46 Assessment & Plan Assessment & Plan (1) Family history of nephrolithiasis: Code(s): Z84.1 - Family history of disorders of kidney and ureter Category: Medical (2) Flank pain: Code(s): R10.9 - Unspecified abdominal pain Category: Medical (3) Gross hematuria: Code(s): R31.0 - Gross hematuria Category: Medical (4) Microscopic hematuria: Code(s): R31.29 - Other microscopic hematuria Category: Medical (5) Nephrolithiasis: Code(s): N20.0 - Calculus of kidney Category: Medical Plan In office urinalysis results reviewed with the patient today; as noted above; will send for urine cytology. Discussed obtaining retroperitoneal ultrasound for further assessment evaluation. We discussed at length potential causes of flank pain He currently denies any bothersome urinary issues. He reports be happy with current voiding parameters. Discussed, educated, and stressed the importance of adequate hydration relation to nephrolithiasis as well as overall health and well-being. Follow-up in 1-3 months with imaging to be completed prior; or sooner with any issues, concerns, and or questions. Orders: Orders AMB Urinalysis Automated Today Z13.9 - Encounter for screening, unspecified US retroperitoneal comp Today R10.9 - Unspecified abdominal pain, Z84.1 - Family history of disorders of kidney and ureter Urine Cytology Today R31.0 - Gross hematuria Patient Instructions: The patient had an opportunity to ask questions regarding the treatment plan. All questions were answered. Physical exam, labs, and imaging were discussed and reviewed in detail. As well as risks, benefits, and discussion of treatment choices. No major barriers to understanding were identified. The patient expressed understanding and agreement with the above treatment plan. The patient was made aware they should contact our office by phone for worsening of their current condition, the appearance of new symptoms, or with any questions or concerns. Compliance is encouraged with any medications and follow up testing that is ordered. It is a privilege to be allowed the opportunity to participate in? your urological care.? Again, if you have any questions or concerns If you have any questions or concerns please do not hesitate to contact me. The office is [phone]. This note is constructed using voice recognition software. While every effort has been made to ensure accuracy gmat instructor errors may have been included. Yours sincerely, JOVANI Castorena Coding Level of Care Code Est Pt Level 3 (21354) Complex EM visit Add On G2211 Diagnoses Family history of nephrolithiasis Z84.1 Flank pain R10.9 Gross hematuria R31.0 Microscopic hematuria R31.29 Nephrolithiasis N20.0
== END 2024-08-18 09:18 | disposition home or self-care (01) ==
PROVIDERS: PCP Internal Medicine; Visit Provider Nurse Practitioner Family
DX: Z84.1 Family history of disorders of kidney and ureter (principal); R10.9 Unspecified abdominal pain; R31.0 Gross hematuria; R31.29 Other microscopic hematuria; N20.0 Calculus of kidney; Z13.9 Encounter for screening, unspecified
CPT/HCPCS: 99213; G2211

== ENCOUNTER 2024-09-10 12:10 | Outpatient (REF) | payer MEDICARE, SELFPAY ==
--- NOTE | ~2024-09-10 | US_ITS ---
EXAMINATION: US RETROPERITONEAL COMPLETE (RENAL) CLINICAL INFORMATION: Unspecified abdominal pain. COMPARISON: CT urogram 03/05/2024. Ultrasound abdomen complete 03/23/2017. TECHNIQUE: Real-time imaging of the kidneys and bladder. FINDINGS: RIGHT KIDNEY: 12.0 x 6.8 x 6.0 cm (SAG x AP x TRV). The kidney is normal in size, contour, and echogenicity. Renal cortical thickness is normal. No calculi or focal parenchymal lesions. A linear avascular calcification is seen at the upper pole. No hydronephrosis. LEFT KIDNEY: 11.7 x 5.5 x 5.4 cm (SAG x AP x TRV). The kidney is normal in size, contour, and echogenicity. Renal cortical thickness is normal. No calculi or focal parenchymal lesions. No hydronephrosis. BLADDER: Well distended and normal. Bilateral ureteral jets are demonstrated. Prevoid bladder volume is 195 mL. Postvoid bladder volume is 2.7 mL. ADDITIONAL FINDINGS: Moderate BPH at 51.3 mL. US/US retroperitoneal comp IMPRESSION: Moderate BPH. Electronically signed by: Tom Acevedo MD 10/14/2024 07:01 PM [facility]
== END 2024-09-10 12:11 | disposition home or self-care (01) ==
LOC: HO.US 12:10
PROVIDERS: PCP Internal Medicine; Visit Provider Nurse Practitioner Family
DX: R10.9 Unspecified abdominal pain (principal); Z84.1 Family history of disorders of kidney and ureter
CPT/HCPCS: 76770

== ENCOUNTER 2024-10-02 08:48 | Outpatient (AMB) | payer MEDICARE, SELFPAY ==
--- NOTE | 2024-10-02 08:56 | A.OFFVIS_ITS ---
Intake Visit Reasons: 2m/US(set) Intake Note: Patient presents today for follow up on: Hematuria, nephrolithiasis, and ultrasound results Imaging Completed: 09/10/24 Meds- None Allergies to Antibiotic- No Known Allergies Blood Thinner- Xarelto Division Manager Required: No Accompanied by: Self / Same As Patient Allergies poison jessika extract [POISON JESSIKA] Allergy (Unknown, Verified 10/14/24 22:08) RASH Medication List - Last Reconciled 10/14/24 by JOVANI Castorena atorvastatin 80 mg PO DAILY metoprolol tartrate 50 mg PO BID rivaroxaban (Xarelto) 20 mg PO DAILY HPI Comments Details: Devonte is a very pleasant 69-year-old male patient of Dr. Greenwood. He has a past medical history of arrhythmia, hypertension, back pain, and Sam mountain spotted fever. He presents to the office today for follow-up of his gross hematuria. He denies having had any further episodes of gross hematuria in over 8-9 months. Recent retroperitoneal ultrasound results reviewed with the patient today. Bilateral kidneys are normal in size,, contour, and echogenicity. Bilateral kidneys with no calculi, lesions, and or hydronephrosis. The bladder is well distended and normal. Pre void bladder volume is proximally 200 mL. Postvoid bladder volume is a proximally 3 mL. Moderate BPH with a prostate volume of approximately 51 mL. Patient with a history of in office cystoscopy 02/[address] Bailey that noted minimal abnormalities. Long prostate with no median lobe. Previous workup has also included a CT urogram 03/19 that notes right renal punctate upper pole nonobstructing stone. The kidneys are normal in size, shape, and attenuation. No hydronephrosis or hydroureter seen. No perinephric stranding. No obvious mass lesion or filling defect is seen in the collecting system or ureters. The bladder is unremarkable. 01/19 and 08/19 Urine Cytology: Negative for high-grade urothelial carcinoma. In discussion with the patient today he reports to be doing and feeling well. He does report noting weak urinary stream and urinary hesitancy however does not find these symptoms bothersome and feels he is managing symptoms independently without difficulty. He denies urinary urgency, urinary frequency, incontinence, nocturia, dysuria, foul smelling urine, changes to urinary stream, fever, and or chills. He otherwise offers no other issues or concerns at this time. [facility] Medical History (Updated 10/02/24 @ 09:24 [facility] BPH (benign prostatic hyperplasia) COVID-19 Arrhythmia Hypertension [place] spotted fever Surgical History History of tonsillectomy Social History Alcohol intake: former Patient Tobacco Use Status: Never used Tobacco Review of Systems Const Reports as per HPI Eyes Reports no additional complaints ENT Reports no additional complaints Card Reports as per HPI Resp Reports no additional complaints GI Reports no additional complaints Reports as per HPI Musc Reports as per HPI Neuro Reports no additional complaints Psych Reports no additional complaints Endo Reports no additional complaints Aman/Lymph Reports no additional complaints Aller/Immun Reports no additional complaints Physical Exam Const General: cooperative, healthy appearing, comfortable, no acute distress, well developed, alert and awake Orientation/consciousness: patient oriented x3 Limitations: no limitations HEENT Head: Yes normal to inspection, Yes normocephalic and Yes atraumatic Ears: hearing grossly normal bilaterally Eyes General: appearance normal, both eyes and all related structures Neck Neck: Yes normal visual inspection and Yes trachea midline Chest Chest palpation & inspection: normal inspection of the chest Resp Effort & Inspection: normal respiratory effort and able to speak in complete sentences Cardio Rate: regular rate GI Inspection: Yes normal to inspection General: Yes no CVA tenderness Back/Spine/Pelvis Back: no CVA tenderness Skin General skin exam: no rashes or lesions noted Neuro General: patient oriented x3 Extrem General: Yes normal to inspection Psych Appearance: grossly normal and well kempt Mental Status: mental status grossly normal Speech and movement: Normal speech and movement present and Clear speech present Affect: normal affect Attitude: cooperative Thought process: Normal thought process present Thought content: Normal thought content present Insight: Fair insight present (Psych) Judgement: Fair judgement present (Psych) Results AMB Urinalysis, Automated UA Leukoctes 0 Rafi/uL Last Edit by Quiblycleveland Nicolas on 10/02/24 09:20 UA Nitrite Last Edit by Quiblycleveland Nicolas on 10/02/24 09:20 UA Urobilinogen 0.2 mg/dL Last Edit by Quiblycleveland Nicolas on 10/02/24 09:20 UA Protein 0 mg/dL Last Edit by Quiblycleveland WinDensityshey on 10/02/24 09:20 UA pH 6.0 Last Edit by Quiblycleveland WinDensityshey on 10/02/24 09:20 UA Blood 80 Ronni/uL Last Edit by FlyClipshey on 10/02/24 09:20 UA Specific [place] 1.015 Last Edit by FlyClipshey on 10/02/24 09:20 UA Ketone Last Edit by FlyClipshey on 10/02/24 09:20 UA Bilirubin 0 mg/dL Last Edit by FlyClipshey on 10/02/24 09:20 UA Glucose 0 mg/dL Last Edit by Quiblycleveland WinDensityshey on 10/02/24 09:20 Results Reviewed Results Reviewed: Laboratory Last Values Urine pH (Auto) 6.0 10/02/24 09:01 Specific [place] (Auto) 1.015 10/02/24 09:01 Urine Protein (Auto) 0 mg/dL 10/02/24 09:01 Glucose (UA)(Auto) 0 mg/dL 10/02/24 09:01 Urine Blood (Auto) 80 Ronni/uL 10/02/24 09:01 Urine Bilirubin (Auto) 0 mg/dL 10/02/24 09:01 Urine Urobilinogen (Auto) 0.2 mg/dL 10/02/24 09:01 Leukocyte Esterase (Auto) 0 Rafi/uL 10/02/24 09:01 Date of Service: 09/10/24 EXAMINATION: US RETROPERITONEAL COMPLETE (RENAL) FINDINGS: RIGHT KIDNEY: 12.0 x 6.8 x 6.0 cm (SAG x AP x TRV). The kidney is normal in size, contour, and echogenicity. Renal cortical thickness is normal. No calculi or focal parenchymal lesions. A linear avascular calcification is seen at the upper pole. No hydronephrosis. LEFT KIDNEY: 11.7 x 5.5 x 5.4 cm (SAG x AP x TRV). The kidney is normal in size, contour, and echogenicity. Renal cortical thickness is normal. No calculi or focal parenchymal lesions. No hydronephrosis. BLADDER: Well distended and normal. Bilateral ureteral jets are demonstrated. Prevoid bladder volume is 195 mL. Postvoid bladder volume is 2.7 mL. ADDITIONAL FINDINGS: Moderate BPH at 51.3 mL. IMPRESSION: Moderate BPH. Assessment & Plan Assessment & Plan (1) BPH (benign prostatic hyperplasia): Code(s): N40.0 - Benign prostatic hyperplasia without lower urinary tract symptoms Category: Medical (2) Nephrolithiasis: Code(s): N20.0 - Calculus of kidney Category: Medical (3) Microscopic hematuria: Code(s): R31.29 - Other microscopic hematuria Category: Medical (4) Gross hematuria: Code(s): R31.0 - Gross hematuria Category: Medical Plan In office urinalysis results reviewed with the patient today; as noted above. Recent retroperitoneal ultrasound results reviewed with the patient today; as noted above. Patient denies having had any bothersome urinary issues or concerns. He reports to be happy with current voiding parameters. Previous urine cytology results reviewed with the patient today; as noted above. Will obtain PSA in 1 year. Will obtain renal ultrasound in 1 year. Follow-up in 1 year with imaging and labs to be completed prior and PVR at next office visit; or sooner with any issues, concerns, and or questions. Orders: Orders US renal BI 1 Year N20.0 - Calculus of kidney AMB Urinalysis Automated 10/02/24 Z13.9 - Encounter for screening, unspecified Prostate Specific Antigen 1 Year N40.0 - Benign prostatic hyperplasia without lower urinary tract symptoms Patient Instructions: The patient had an opportunity to ask questions regarding the treatment plan. All questions were answered. Physical exam, labs, and imaging were discussed and reviewed in detail. As well as risks, benefits, and discussion of treatment choices. No major barriers to understanding were identified. The patient expressed understanding and agreement with the above treatment plan. The patient was made aware they should contact our office by phone for worsening of their current condition, the appearance of new symptoms, or with any questions or concerns. Compliance is encouraged with any medications and follow up testing that is ordered. It is a privilege to be allowed the opportunity to participate in? your urological care.? Again, if you have any questions or concerns If you have any questions or concerns please do not hesitate to contact me. The office is [phone]. This note is constructed using voice recognition software. While every effort has been made to ensure accuracy technical writing lead/mgr errors may have been included. Yours sincerely, JOVANI Castorena Coding Level of Care Code Est Pt Level 3 (28285) Diagnoses BPH (benign prostatic hyperplasia) N40.0 Nephrolithiasis N20.0 Microscopic hematuria R31.29 Gross hematuria R31.0
== END 2024-10-02 09:27 | disposition home or self-care (01) ==
LOC: HO.HUSH 08:48
PROVIDERS: PCP Internal Medicine; Visit Provider Nurse Practitioner Family
DX: N40.0 Benign prostatic hyperplasia without lower urinary tract symptoms (principal); N20.0 Calculus of kidney; R31.29 Other microscopic hematuria; R31.0 Gross hematuria
CPT/HCPCS: 99213

== ENCOUNTER → 2024-10-02 08:48 | Outpatient (BNVA) | payer MEDICARE, SELFPAY | PROVIDERS: PCP Internal Medicine; Visit Provider Nurse Practitioner Family | DX: N20.0 Calculus of kidney (principal); N40.0 Benign prostatic hyperplasia without lower urinary tract symptoms; R31.29 Other microscopic hematuria; R31.0 Gross hematuria | CPT/HCPCS: 81003; 99212 ==

== ENCOUNTER 2025-09-17 10:17 | Outpatient (REF) | payer MEDICARE, SELFPAY ==
--- NOTE | ~2025-09-17 | US_ITS ---
EXAMINATION: US KIDNEY BILATERAL HISTORY: N20.0 - Calculus of kidney TECHNIQUE: Real-time grayscale ultrasound imaging of the kidneys was performed and images were reviewed. COMPARISON: Comparison is made with the prior examination dated 09/10/2024. FINDINGS: Right kidney: The right kidney measures 11.1 x 5.5 x 5.6 cm. Renal parenchymal echotexture and thickness are normal. There is a 1.3 x 1.0 x 0.9 cm upper pole cyst. There is no hydronephrosis or renal calculi. Left Kidney: The left kidney measures 12.6 x 6.4 x 4.8 cm. Renal parenchymal echotexture and thickness are normal. There are no masses. There is no hydronephrosis or renal calculi. US/US renal BI IMPRESSION: 1.3 x 1.0 x 0.9 cm right upper pole renal cyst. Otherwise unremarkable renal ultrasound. Electronically signed by: Preston Herrera MD 09/17/2025 11:05 AM EDT
[2025-09-17 12:07] LABS: Prostate Specific Antigen 0.43 ng/mL (<0.05-4.0)
--- OUTSIDE RECORDS SUMMARY | 2025-09-17 12:14 | XMS_ITS ---
Author Name [facility] Organization Unknown Care Team Organization Name Specialty Phone Email Start Date End Da te [facility] ACO 07/15/2025 [facility] Termed, PROVIDER Primary Care 12/04/202206/26 [facility] 10/03/2022 07/14/2024
--- OUTSIDE RECORDS SUMMARY | 2025-09-17 12:14 | XMS_ITS | Clinical Summary ---
Author Organization [facility] Address [address] [place] [address] Care Team Providers Care Safemaker Name Role Phone Olivia Greenwood MD Primary Care Provider [phone] Allergies No known active allergies Medications ERGOCALCIFEROL, VITAMIN D2, ORAL Take by mouth daily. Active aspirin 81 mg EC tablet Take 1 Tablet by mouth daily for 180 days. 3 Active coenzyme Q-10 100 mg capsule Take by mouth daily. Active polyethylene glycol (Golytely) 236-22.74-6.74 -5.86 gram solution Take 4L by mouth once for one dose. May substitue any PEG. Starting at 6PM the night before your procedure drink 1 8oz glasses at your own pace until you complete half of the gallon. Finish 2nd half of the gallon 5 hours before your procedure. 4000 mL 5 Active bisacodyL (DULCOLAX) 5 mg EC tablet Take 2 tablets by mouth right before beginning bowel prep. See instructions provided by the office 2 tablet 5 Active ciclopirox (LOPROX) 0.77 % cream every 12 hours. Acti ve atorvastatin (LIPITOR) 80 mg tablet TAKE ONE TABLET BY MOUTH EVERY DAY 30 tablet 6 5 Active Xarelto 20 mg tablet TAKE 1 TABLET BY MOUTH EVERY DAY 90 tablet 1 5 Active metoprolol tartrate (LOPRESSOR) 50 mg tablet TAKE ONE TABLET BY MOUTH TWO TIMES A DAY 60 tablet 5 07/10/202 5 Active Active Problems Problem Noted Date Diagnosed Date Ascending aorta dilatation ([facility] V24) 025 Assessment & Plan (12/01/2024 4:36 PM EST): We will obtain an echocardiogram for reevaluation of ascending aorta dilatation noted last on echocardiogram from 2019. Blood pressure is currently well-controlled. Orders: Transthoracic echocardiogram (TTE) complete with PRN contrast, bubble, strain, and 3D order panel; Future PVC's (premature ventricular contractions) 12/01 Assessment & Plan (12/01/2024 4:36 PM EST): Given the patient's palpitations and PVCs noted on ECG today in combination with his history of paroxysmal atrial fibrillation, NSVT, and bradycardia, we will evaluate overall rate control and for any underlying arrhythmias with 24-hour Holter. As discussed above, I am hesitant to readjust his beta-blockade at this time as he appears to be asymptomatic of his bradycardia; however, we may need to readdress this based on the results of his Holter monitor showed significant bradycardia or underlying arrhythmias be noted further. We will update labs as well as an echocardiogram as well. Orders: Transthoracic echocardiogram (TTE) complete with PRN contrast, bubble, strain, and 3D order panel; Future Cardiac holter monitor (<= 48 hours); Future Basic metabolic panel; Future Bradycardia 12/01/2024 Assessment & Plan (12/01/2024 4:36 PM EST): As discussed above, the patient has had 2 readings of significant bradycardia with a heart rate in the 30s to 40s over the last year. Heart rate is in the 50s today on ECG. He does have a history of frequent PVCs and is unclear if this is playing a role in the perception of his bradycardia. We will continue to reevaluate this once Holter monitor results are reviewed as we may need to decrease his beta-blockade based on these results. We will check a TSH to evaluate for any underlying thyroid dysregulation that may be contributing as well. Orders: Cardiac holter monitor (<= 48 hours); Future Thyroid stimulating hormone with reflex to free t4 and free t3; Future Palpitations 12/01/2024 Assessment & Plan (12/01/2024 4:36 PM EST): Orders: Cardiac holter monitor (<= 48 hours); Future Basic metabolic panel; Future Chronic anticoagulation 12/01/2024 Assessment & Plan (12/01/2024 4:36 PM EST): Orders: CBC and differential; Future Lightheadedness 12/01/2024 Assessment & Plan (12/01/2024 4:36 PM EST): Transient, very mild and not intrusive; this has been ongoing for many years per patient report. Should this worsen in any way, he will return to care for further evaluation. I have asked that he pay attention to this while he has his Holter monitor in place noting when he is experiencing the symptoms in his diary so that we can see if they correlate with any underlying arrhythmias or significant bradycardia. Patient verbalizes understanding. Orders: Cardiac holter monitor (<= 48 hours); Future Basic metabolic panel; Future Secondary hypercoagulable state (CMS/HCC V24) Assessment & Plan (12/01/2024 4:36 PM EST): NSVT (nonsustained ventricul ar tachycardia) (CMS/HCC V24, CMS/HCC V28) 10/04/2022 Overview (10/16/2024): Last Assessment & Plan: EF is normal. Noted on Holter monitor. Coronary anatomy showed nonobstructive disease based off catheterization. Assessment & Plan (12/01/2024 4:36 PM EST): Orders: Transthoracic echocardiogram (TTE) complete with PRN contrast, bubble, strain, and 3D order panel; Future Cardiac holter monitor (<= 48 hours); Future Basic metabolic panel; Future Coronary artery disease due to calcified coronar y lesion 08/21/2022 Overview (10/16/2024): Last Assessment & Plan: He has nonobstructive coronary disease as above. Unclear why he is not on aspirin. He will start 81 mg baby aspirin daily in addition to his Xarelto for both coronary disease and atrial fibrillation. He will continue metoprolol and high intensity statin therapy. Goal LDL should be less than 70. Continue low-salt diet and daily low impact exercise. He does not have any symptoms suggestive of ischemia. He was instructed to go to the hospital if he has any chest pain or chest discomfort lasting 15 minutes or longer. Assessment & Plan (12/01/2024 4:36 PM EST): The patient has a history of nonobstructive coronary disease as above. He remains active on a regular basis and offers no symptoms concerning for underlying ischemia. We will continue cardioprotective medical therapies including metoprolol, atorvastatin, and daily ASA. As discussed below, he has noted to be quite bradycardic today so we may need to readdress his beta-blockade in the near future; we will continue to readdress this as indicated. The patient was advised to seek emergent medical attention by calling 911 if they were to develop severe dyspnea, chest pain that did not resolve with rest, or if they were to faint. Orders: Lipid panel with reflex to direct LDL; Future Class 1 obesity due to exces s calories with serious comorbidity and body mass index (BMI) of 34.0 to 34.9 in adult 06/05/2022 Assessment & Plan (12/01/2024 4:36 PM EST): Patient is obese. Approaches towards weight loss are discussed, including burning more calories than one takes in by portion control and regular exercise with an emphasis on duration rather than intensity. Orders: Thyroid stimulating hormone with reflex to free t4 and free t3; Future Paroxysmal atrial fibrillation (CMS/HCC V24, CMS /HCC V28) 11/05/2017 Overview (10/16/2024): See cardiology note, cardiology decided against anticoagulation. Last Assessment & Plan: He does not appear to have any recurrent atrial fibrillation since his COVID diagnosis. He will continue metoprolol for rate control. Continue anticoagulation with Xarelto for CVA prophylaxis. This is dosed appropriately based off his creatinine clearance. He is due for repeat labs. The risks and benefits of anticoagulation therapy have been discussed with the patient. He verbalizes understand agrees to continue. Assessment & Plan (12/01/2024 4:36 PM EST): The patient has not had any symptoms to raise suspicion of recurrent atrial fibrillation in many years; he is having occasional palpitations which we will evaluate further as below. Given his history of paroxysmal atrial fibrillation as well as PVCs and NSVT, I am hesitant to decrease his beta-blockade given that he is asymptomatic of his bradycardia at this time; we will continue to readdress this as discussed below. Continue metoprolol for rate control and anticoagulation with Xarelto for cardioembolic prophylaxis. We discussed the risk and benefits of continuing with anticoagulation and he wishes to continue with the current plan. He is on the appropriate dose of Xarelto 20 mg daily for his creatinine clearance. He is aware to seek emergent medical attention for any uncontrolled bleeding, signs or symptoms of GI or other internal bleeding, or for any head injury. Orders: ECG 12 lead Cardiac holter monitor (<= 48 hours); Future Hyperglycemia 07/05/2013 Squamous cell skin cancer 01/31/2013 Overview (10/16/2024): SCC 02/05 neck (in situ), follows with Dr. Vizcarra, dermatology. Diverticulitis of colon without hemorrhage 12/26 Overview (10/16/2024): Incidental finding at colonoscopy 12/26/2012. Sebaceous cyst 10/02/2012 Pure hypercholesterolemia 05/31/2007 Overview (10/16/2024): Last Assessment & Plan: Last lipid panel from October 2022. Total cholesterol 161, HDL 53, LDL 88. Atorvastatin was increased at last office visit. He is having this repeated and we will reassess. If LDL is not less than 70 would consider adding Zetia 10 mg daily to his regimen. Assessment & Plan (12/01/2024 4:36 PM EST): LDL goal for this patient who has a history of coronary artery disease is less than 70. His most recent lipid panel completed in June 2023 shows an LDL of 58 which is at goal. We will update a lipid panel and readdress this as needed; continue atorvastatin 80 mg daily. I have reviewed with the patient the importance of a heart healthy lifestyle which includes eating a low-fat low-salt diet, getting regular exercise, maintaining a healthy weight, not smoking, and following up with routine medical care. Orders: Lipid panel with reflex to direct LDL; Future Immunizations Immunization Administration Dates Next Due COVID-19 (Moderna/Spikevax) 12yo and older 08/27 H1N1 Inj Preservative Free 12/08/2009 Hepatitis A Adult (Havrix; V aqta) 19yo and older 12/20/2017,02/28/2007 Influenza trivalent, 0.5mL ( Fluad) 65yo and older 08/04/2024,08/05/2020,12/25/2019 Influenza trivalent, 0.5mL, preservative free (Fluarix; FluLaval; Fluzone) ages 6mo and older (Afluria) 3 years and older 10/02/2012,12/08/2009 Pneumococcal conjugate 20 va lent (Prevnar 20, PCV 20) 2mo and older 09/25/2022 Rabies Vaccine, For Intramus cular Injection Retired Code 06/28/2020 Tdap Tetanus diptheria acell ular pertussis (Boostrix; Adacel) 7yo and older 12/20/2017,05/31/2007 Typhoid VICPS (Typhim Vi) 2yo and older 12/20/19 18 Zoster recombinant (Shingrix ) 19yo and older 01/29/2020 Surgical History Surgery Date Site/Laterality Comments COLONOSCOPY 12/24/2007 PROCEDURE: VT COLONOSCOPY FLX DX W/COLLJ SPEC WHEN PFRMD; COMMENT: Negative COLONOSCOPY 12/26/2012 PROCEDURE: VT COLONOSCOPY FLX DX W/COLLJ SPEC WHEN PFRMD; COMMENT: minimal diverticulosis; no polyps Medical History Medical History Date Comments Pure hypercholesterolemia 05/31/2007 DX:Pur e hypercholesterolemia Family history of colonic polyps 12/24/2007 DX:Family history of colonic polyps; COMMENT: Negative colonoscopy 12/24/2007, no colon cancer screening needed for 5 years. Diverticulosis of colon (wit hout mention of hemorrhage) 12/26/2012 DX:Diverticulosis of colon ( without mention of hemorrhage) Hyperglycemia 07/05/2013 DX:Hyperglycemia Paroxysmal atrial fibrillati on (CMS/HCC V24, CMS/HCC V28) 11/05/2017 DX:Paroxysmal atrial fibril lation (HCC) Family History Medical History Relation Name Comments Hyperlipidemia Brother 1 Colon polyps Brother 2 dx with polyps at age 35 approx. Other: BPH Father needing surgery Other: pacer maker Father congenita l heart disease Stroke Maternal Grandfather at gae 75 Other: PVD on coumadin Mother Stroke Mother from strok e 75 Stroke Paternal Grandmother at age 93 Other: brain tumor Uncle Relation Name Status Comments Brother 1 Brother 2 Father Maternal Grandfather Mother Paternal Grandmother Uncle Social History Tobacco Use Types Packs/Day Years Used Date Smoking Tobacco: Former Cigarettes Q uit: 11/26/1975 Smokeless Tobacco: Former Alcohol Use Standard Drinks/Week Comments No 0 (1 standard drink = 0.6 oz pur e alcohol) Interpersonal Safety Answer Date Record ed Physical Abuse Unrecognized value 12/29/2024 Verbal Abuse Unrecognized value 12/29/2024 Sex and Gender Information Value Date Recorded Sex Assigned at Male 11/25/2021 6:00 PM EST Legal Sex Male 5:30 PM EST Gender Identity Male 11/25/2021 6:00 PM EST Sexual Orientation Straight 12/24/2024 3: 49 PM EST Obstetrics History Last Filed Vital Signs Vital Sign Reading Time Taken Comments Blood Pressure 122/70 12/29/2024 8:52 AM EST Pulse 64 12/29/2024 8:52 AM EST Temperature 35.9 C (96.6 F) 12/29/2024 8:32 AM EST Respiratory Rate 18 12/29/2024 8:52 AM EST Oxygen Saturation 97% 12/29/2024 8:52 AM EST Inhaled Oxygen Concentration - - Weight 115 kg (254 lb) 02/09/2025 9:07 AM EDT Height 182.9 cm (6') 02/09/2025 9:07 AM EDT Body Mass Index 34.45 02/09/2025 9:07 AM EDT Plan of Treatment Health Maintenance Due Date Last Done Comments Zoster Vaccines (2 of 2) 03/25/2020 01/29/2020 Social Influencers of Health Screening 11/25/2021 Depression Screening 11/26/2024 08/04/2024 Hypertension/CHF/CAD Annual BMP Blood Test 12/04/2024 12/04/2023 COVID-19 Vaccine (6 - Pfizer risk season) 2025 08/22/2024, 08/27/2023, 08/22/2021, Additional history exists Influenza Vaccine (#1) 2025 , 09/25/2022, 11/05/2021, Additional history exists Medicare Annual Wellness Visit 08/04/2025 08/04/2024 Falls Risk Assessment 12/29/2025 12/29/2024, 024 DTaP,Tdap,and Td Vaccines (3 - Td or Tdap) 12/20/2027 12/20/2017, 05/31/2007 Cholesterol Screening (Lipid Panel) 07/26/2028 07/26/2023 RSV Immunization Adult Patients (1 - 1-dose 75+ series) 2029 Colorectal Cancer Screening: Colonoscopy 12/29/2034 12/29/2024 Hepatitis C Screening Completed 03/22/2017 Hepatitis A Vaccines Aged Out 12/20/2017, 02/29/20 07 No longer eligible based on patient's age to complete this topic Abdominal Aortic Aneurysm (AAA) Screen Completed 08/18/2020, 08/18/2020 Pneumococcal Vaccine: 50+ Years Completed 09/25/2022 HIB Vaccines Aged Out No longer eligi ble based on patient's age to complete this topic HPV Vaccines Aged Out No longer eligi ble based on patient's age to complete this topic Hepatitis B Vaccines Aged Out No long er eligible based on patient's age to complete this topic IPV Vaccines Aged Out No longer eligi ble based on patient's age to complete this topic MMR Vaccines Aged Out No longer eligi ble based on patient's age to complete this topic Meningococcal ACWY Vaccine Aged Out N o longer eligible based on patient's age to complete this topic Meningococcal B Vaccine Aged Out No l onger eligible based on patient's age to complete this topic RSV Immunization Patients Under 20 months Aged Out No longer eligible based on patient's age to complete this topic Varicella Vaccines Aged Out No longer eligible based on patient's age to complete this topic Procedures Procedure Name Priority Date/Time Associated Diagnosis Comments COLONOSCOPY Routine 12/29/2024 8:31 AM EST Family history of colonic polyps DEPRESSION SCREENING Routine 08/04/2024 FALLS RISK ASSESSMENT Routine 08/04/2024 ANNUAL BMP BLOOD TEST Routine 12/04/2023 LIPID PANEL Routine 07/26/2023 US ABDOMINAL AORTA REAL TIME SCREEN STUDY AAA Routine 08/18/2020 7:44 AM EDT Encounter for screening for cardiovascular disorders HEPATITIS C SCREENING Routine 03/22/2017 from Last 3 Months or Most Recently Relevant to Health Maintenance Results * COLONOSCOPY Anesthesia - MAC; [facility] ENDOSCOPY (12/29/2024 8:31 AM EST) Anatomical Region Laterality Modality Endoscopy 12/29/2024 8:11 AM EST Impressions 12/29/2024 8:31 AM EST - Hemorrhoids found on perianal exam. - The examination was otherwise normal on direct and retroflexion views. - No specimens collected. Recommendation: - - Discharge patient to home. - Resume previous diet. - Continue present medications. - Repeat colonoscopy in 10 years for screening purposes. - Return to primary care physician. Narrative 12/29/2024 8:31 AM EST [facility] GI Patient Name: Devonte Hawthorne Procedure Date: 12/29/2024 8:11 AM Date of : 1955 Age: 69 Gender: Male Note Status: Finalized Attending MD: Ness Daniels DO, [id number] Procedure Date No Time: 12/29/2024 Procedure: Colonoscopy Indications: Screening for colorectal malignant neoplasm Providers: Ness Daniels DO Referring MD: Olivia Greenwood MD Medicines: Monitored Anesthesia Care Complications: No immediate complications. Estimated blood loss: Minimal. Estimated Blood Loss: Estimated blood loss: none. Procedure: Pre-Anesthesia Assessment: - - Prior to the procedure, a History and Physical was performed, and patient medications and allergies were reviewed. The patient is competent. The risks and benefits of the procedure and the sedation options and risks were discussed with the patient. All questions were answered and informed consent was obtained. Patient identification and proposed procedure were verified by the physician, the nurse, the anesthesiologist, the envelope maker and the body art technician in the pre-procedure area in the endoscopy suite. Mental Status Examination: alert and oriented. Airway Examination: normal oropharyngeal airway and neck mobility. Respiratory Examination: clear to auscultation. CV Examination: normal. Prophylactic Antibiotics: The patient does not require prophylactic antibiotics. Prior Anticoagulants: The patient has taken no anticoagulant or antiplatelet agents. ASA Grade Assessment: II - A patient with severe systemic disease. After reviewing the risks and benefits, the patient was deemed in satisfactory condition to undergo the procedure. The anesthesia plan was to use monitored anesthesia care (MAC). Immediately prior to administration of medications, the patient was re-assessed for adequacy to receive sedatives. The heart rate, respiratory rate, oxygen saturations, blood pressure, adequacy of pulmonary ventilation, and response to care were monitored throughout the procedure. The physical status of the patient was re-assessed after the procedure. After I obtained informed consent, the scope was passed under direct vision. Throughout the procedure, the patient's blood pressure, pulse, and oxygen saturations were monitored continuously. The Olympus Pediatric Colonoscope was introduced through the anus and advanced to the cecum, identified by appendiceal orifice and ileocecal valve. The colonoscopy was performed without difficulty. The patient tolerated the procedure well. The quality of the bowel preparation was good. Findings: Hemorrhoids were found on perianal exam. The exam was otherwise without abnormality on direct and retroflexion views. Procedure Code(s): --- Professional --- G0121, Colorectal cancer screening; colonoscopy on individual not meeting criteria for high risk Diagnosis Code(s): --- Professional --- Z12.11, Encounter for screening for malignant neoplasm of colon K64.9, Unspecified hemorrhoids CPT copyright 2020 [employer]. All rights reserved. The codes documented in this report are preliminary and upon clearance rep review may be revised to meet current compliance requirements. NESS Daniels DO 12/29/2024 8:31:39 AM This report has been signed electronically.Ness Daniels DO Number of Addenda: 0 Note Initiated On: 12/29/2024 8:11 AM Scope Withdrawal Time: 0 hours 7 minutes 3 seconds Scope In: 8:21:33 AM Scope Out: 8:30:33 AM Endoscopy Department at [facility] - [address] [place] [id number] Procedure Note Ness Daniels DO - 12/29/2024 [facility] GI Patient Name: Devonte Hawthorne Procedure Date: 12/29/2024 8:11 AM Date of : 1955 Age: 69 Gender: Male Note Status: Finalized Attending MD: Ness Daniels DO, [id number] Procedure Date No Time: 12/29/2024 Procedure: Colonoscopy Indications: Screening for colorectal malignant neoplasm Providers: Ness Daniels DO Referring MD: Olivia Greenwood MD Medicines: Monitored Anesthesia Care Complications: No immediate complications. Estimated blood loss: Minimal. Estimated Blood Loss: Estimated blood loss: none. Procedure: Pre-Anesthesia Assessment: - - Prior to the procedure, a History and Physicalwas performed, and patient medications and allergieswere reviewed. The patient is competent. The risks and benefits of the procedure and the sedation optionsand risks were discussed with the patient. Allquestions were answered and informed consent was obtained. Patient identification and proposed procedure were verified by the physician, the nurse, the anesthesiologist, the envelope maker and thetechnician in the pre-procedure area in the endoscopy suite. Mental Status Examination: alert and oriented.Airway Examination: normal oropharyngeal airway and neck mobility. Respiratory Examination: clear to auscultation. CV Examination: normal. Prophylactic Antibiotics: The patient does not requireprophylactic antibiotics. Prior Anticoagulants: The patient has taken no anticoagulant or antiplatelet agents. ASA Grade Assessment: II - A patient with severesystemic disease. After reviewing the risks and benefits,the patient was deemed in satisfactory condition to undergo the procedure. The anesthesia plan was touse monitored anesthesia care (MAC). Immediately priorto administration of medications, the patient was re-assessed for adequacy to receive sedatives. The heart rate, respiratory rate, oxygen saturations, blood pressure, adequacy of pulmonary ventilation,and response to care were monitored throughout the procedure. The physical status of the patient was re-assessed after the procedure. After I obtained informed consent, the scope was passed under direct vision. Throughout theprocedure, the patient's blood pressure, pulse, and oxygen saturations were monitored continuously. TheOlympus Pediatric Colonoscope was introduced through theanus and advanced to the cecum, identified byappendiceal orifice and ileocecal valve. The colonoscopy was performed without difficulty. The patient tolerated the procedure well. The quality of the bowel preparation was good. Findings: Hemorrhoids were found on perianal exam. The exam was otherwise without abnormality ondirect and retroflexion views. Procedure Code(s): --- Professional --- G0121, Colorectal cancer screening; colonoscopy on individual not meeting criteria for high risk Diagnosis Code(s): --- Professional --- Z12.11, Encounter for screening for malignantneoplasm of colon K64.9, Unspecified hemorrhoids CPT copyright 2020 [employer]. All rights reserved. The codes documented in this report are preliminary and upon clearance rep reviewmay be revised to meet current compliance requirements. NESS Daniels DO 12/29/2024 8:31:39 AM This report has been signed electronically.Ness Daniels DO Number of Addenda: 0 Note Initiated On: 12/29/2024 8:11 AM Scope Withdrawal Time: 0 hours 7 minutes 3 seconds Scope In: 8:21:33 AM Scope Out: 8:30:33 AM Endoscopy Department at [address] [id number] IMPRESSION: - Hemorrhoids found on perianal exam. - The examination was otherwise normal on directand retroflexion views. - No specimens collected. Recommendation: - - Discharge patient to home. - Resume previous diet. - Continue present medications. - Repeat colonoscopy in 10 years for screening purposes. - Return to primary care physician. Ness Daniels DO GI~PROCEDURE ORDERABLES Final Re sult * Falls Risk Assessment (08/04/2024) [facility] Falls Risk Assessment Abstracted [facility] Provider HEALTH MAINTENANCE Final Result * Depression Screening (08/04/2024) [facility] Depression Screening Abstracted [facility] Provider HEALTH MAINTENANCE Final Result * Annual BMP Blood Test (12/04/2023) [facility] Annual BMP Blood Test Abstracted [facility] Provider [facility] MAINTENANCE Final Result * Lipid panel (07/26/2023) LDL/HDL Ratio 3 0 - 4 Triglycerides 73 0 - 150 mg/dL Cholesterol 118 0 - 200 mg/dL HDL 46 >=40 mg/dL LDL Cholesterol 58 0 - 100 mg/dL Blood Venous blood specimen / Unknown Historical Provider LAB BLOOD ORDERABLES Mecca l Result * US ABDOMINAL AORTA REAL TIME SCREEN STUDY AAA (08/18/2020 7:44 AM EDT) Anatomical Region Laterality Modality Ultrasound 08/05/2020 11:3 8 AM EDT Narrative 08/18/2020 9:31 AM EDT EXAM: Abdominal aorta ultrasound, AAA screening HISTORY: History of tobacco use. AAA screening COMPARISON: None FINDINGS: Proximal aorta measures 2.7 cm in maximal diameter. Mid aorta measures 2.2 cm. Distal aorta measures 1.6 cm. Proximal right common iliac artery measures 1.0 cm. Proximal left common iliac artery measures 1.0 cm. IMPRESSION: IMPRESSION: No evidence of an abdominal aortic aneurysm. POS - [id number] Procedure Note Berenice Segal MD - 11/14/2022 EXAM: Abdominal aorta ultrasound, AAA screening HISTORY: History of tobacco use. AAA screening COMPARISON: None FINDINGS: Proximal aorta measures 2.7 cm in maximal diameter. Mid aortameasures 2.2 cm. Distal aorta measures 1.6 cm. Proximal right common iliac artery measures1.0 cm. Proximal left common iliac artery measures 1.0 cm. IMPRESSION: IMPRESSION: No evidence of an abdominal aortic aneurysm. POS - [id number] Raquel JEAN IMG US PROCEDURES Final Re sult * Hepatitis C Screening (03/22/2017) Pathologist [facility] Hepatitis C Screening Abstracted Historical Provider HEALTH MAINTENANCE Final Result from Last 3 Months or Most Recently Relevant to Health Maintenance Insurance MEDICARE [facility] [place] [address] Care Teams Safemaker Relationship Specialty Start Date End Date Olivia Greenwood MD [address] [place] [address] PCP - General 02/20/07
== END 2025-09-17 10:18 | disposition home or self-care (01) ==
LOC: HO.US 10:17
PROVIDERS: PCP Internal Medicine; Visit Provider Nurse Practitioner Family
DX: N40.0 Benign prostatic hyperplasia without lower urinary tract symptoms (principal); N20.0 Calculus of kidney; Z12.5 Encounter for screening for malignant neoplasm of prostate
CPT/HCPCS: 36415; 76775; 84153

== ENCOUNTER → 2025-09-17 10:39 | Outpatient (BNV) | payer MEDICARE, SELFPAY | PROVIDERS: PCP Internal Medicine; Visit Provider Radiology Diagnostic Radiology | DX: N20.0 Calculus of kidney (principal) | CPT/HCPCS: 76775 ==

== ENCOUNTER 2025-10-01 08:52 | Outpatient (AMB) | payer MEDICARE, SELFPAY ==
--- NOTE | 2025-10-01 08:55 | MHC.OFFVIS ---
Intake Visit Reasons: 1y/US/PSA/PVR Intake Note: Patient is present for 1Y/US/PSA/PVR Urology Medication:NONE Antibiotic Allergy:NONE Blood Thinner:RIVAROXABAN TODAY'S PVR:0ML'S Logistics Associate Required: No Allergies poison jessika extract (POISON JESSIKA) Allergy (Unknown, Verified 10/01/25 09:20) RASH Medication List - Last Reconciled 10/01/25 by JOVANI Castorena atorvastatin 80 mg PO DAILY metoprolol tartrate 50 mg PO BID rivaroxaban (Xarelto) 20 mg PO DAILY HPI Comments Details: Devonte is a very pleasant 70-year-old male patient of Dr. Greenwood. He has a past medical history of arrhythmia, hypertension, back pain, and Sam mountain spotted fever. He presents to the office today for follow-up of his gross hematuria. He denies having had any further episodes of gross hematuria since his last office visit here over a year ago. Recent renal imaging results reviewed with the patient today 09/19 bilateral kidneys are normal in echotexture and thickness. There is no hydronephrosis or renal calculi noted bilaterally. There is a 1.3 cm upper pole cyst in the right kidney. Otherwise unremarkable renal ultrasound per radiology report. He does report having had an episode of left-sided flank pain in June of this year however increase his hydration and felt these symptoms shortly subsided. Previous workup has included an in office cystoscopy 02/[address] Bailey that noted minimal abnormalities. Long prostate with no median lobe. 01/19 and 08/19 Urine Cytology: Negative for high-grade urothelial carcinoma. He does report noting weak urinary stream and urinary hesitancy however does not find these symptoms bothersome and feels he is managing symptoms independently without difficulty. He denies urinary urgency, urinary frequency, incontinence, nocturia, dysuria, foul smelling urine, changes to urinary stream, fever, and or chills. He otherwise offers no other issues or concerns at this time. PSA: 09/19 0.4 PFSH Medical History (Updated 10/01/25 @ 10:55 by JOVANI Castorena) BPH (benign prostatic hyperplasia) COVID-19 Arrhythmia Hypertension Gerald spotted fever Surgical History History of tonsillectomy Social History Alcohol intake: former Patient Tobacco Use Status: Never used Tobacco Review of Systems Const Reports as per HPI Eyes Reports no additional complaints ENT Reports no additional complaints Card Reports as per HPI Resp Reports no additional complaints GI Reports no additional complaints Reports as per HPI Musc Reports as per HPI Neuro Reports no additional complaints Psych Reports no additional complaints Endo Reports no additional complaints Aman/Lymph Reports no additional complaints Aller/Immun Reports no additional complaints Physical Exam Const General: cooperative, healthy appearing, comfortable, no acute distress, well developed, alert and awake Orientation/consciousness: patient oriented x3 Limitations: no limitations HEENT Head: Yes normal to inspection, Yes normocephalic and Yes atraumatic Ears: hearing grossly normal bilaterally Eyes General: appearance normal, both eyes and all related structures Neck Neck: Yes normal visual inspection and Yes trachea midline Chest Chest palpation & inspection: normal inspection of the chest Resp Effort & Inspection: normal respiratory effort and able to speak in complete sentences Cardio Rate: regular rate GI Inspection: Yes normal to inspection General: Yes no CVA tenderness Back/Spine/Pelvis Back: no CVA tenderness Skin General skin exam: no rashes or lesions noted Neuro General: patient oriented x3 Extrem General: Yes normal to inspection Psych Appearance: grossly normal and well kempt Mental Status: mental status grossly normal Speech and movement: Normal speech and movement present and Clear speech present Affect: normal affect Attitude: cooperative Thought process: Normal thought process present Thought content: Normal thought content present Insight: Fair insight present (Psych) Judgement: Fair judgement present (Psych) Office Procedures Post Void Residual Post Residual Void Post Void Residual (PVR): 0 [id number] Void Residual by ultrasound Results AMB Urinalysis, Automated UA Leukoctes 0 Rafi/uL Last Edit by YOHAN Garza on 10/01/25 09:09 UA Nitrite Negative Last Edit by YOHAN Garza on 10/01/25 09:09 UA Urobilinogen 0.2 mg/dL Last Edit by YOHAN Garza on 10/01/25 09:09 UA Protein 15 mg/dL Last Edit by YOHAN Garza on 10/01/25 09:09 UA pH 6.0 Last Edit by YOHAN Garza on 10/01/25 09:09 UA Blood 25 Ronni/uL Last Edit by YOHAN Garza on 10/01/25 09:09 UA Specific [place] 1.020 Last Edit by YOHAN Garza on 10/01/25 09:09 UA Ketone Positive Last Edit by YOHAN Garza on 10/01/25 09:09 UA Bilirubin 0 mg/dL Last Edit by YOHAN Garza on 10/01/25 09:09 UA Glucose 0 mg/dL Last Edit by YOHAN Garza on 10/01/25 09:09 Results Reviewed Results Reviewed: Laboratory Last Values Urine pH (Auto) 6.0 10/01/25 09:08 Specific [place] (Auto) 1.020 10/01/25 09:08 Urine Protein (Auto) 15 mg/dL 10/01/25 09:08 Glucose (UA)(Auto) 0 mg/dL 10/01/25 09:08 Urine Ketones (Auto) Positive 10/01/25 09:08 Urine Blood (Auto) 25 Ronni/uL 10/01/25 09:08 Urine Nitrite (Auto) Negative 10/01/25 09:08 Urine Bilirubin (Auto) 0 mg/dL 10/01/25 09:08 Urine Urobilinogen (Auto) 0.2 mg/dL 10/01/25 09:08 Leukocyte Esterase (Auto) 0 Rafi/uL 10/01/25 09:08 Date of Service: 09/17/25 Procedure(s): US renal BI FINDINGS: Right kidney: The right kidney measures 11.1 x 5.5 x 5.6 cm. Renal parenchymal echotexture and thickness are normal. There is a 1.3 x 1.0 x 0.9 cm upper pole cyst. There is no hydronephrosis or renal calculi. Left Kidney: The left kidney measures 12.6 x 6.4 x 4.8 cm. Renal parenchymal echotexture and thickness are normal. There are no masses. There is no hydronephrosis or renal calculi. IMPRESSION: 1.3 x 1.0 x 0.9 cm right upper pole renal cyst. Otherwise unremarkable renal ultrasound. Assessment & Plan Assessment & Plan (1) BPH (benign prostatic hyperplasia): Code(s): N40.0 - Benign prostatic hyperplasia without lower urinary tract symptoms Category: Medical (2) Family history of nephrolithiasis: Code(s): Z84.1 - Family history of disorders of kidney and ureter Category: Medical (3) Nephrolithiasis: Code(s): N20.0 - Calculus of kidney Category: Medical (4) Gross hematuria: Code(s): R31.0 - Gross hematuria Category: Medical (5) Microscopic hematuria: Code(s): R31.29 - Other microscopic hematuria Category: Medical (6) Renal cyst: Code(s): N28.1 - Cyst of kidney, acquired Category: Medical Plan In office urinalysis results reviewed with the patient today; as noted above; will send for urine cytology. PVR 0ml's. Patient currently denies any bothersome urinary issues or concerns. Recent renal imaging results reviewed with the patient today; as noted above. Recent PSA results reviewed with the patient today; as noted above. He reports be happy with current voiding parameters. Will continue with surveillance monitoring. Will obtain renal ultrasound in 1 year. Will obtain PSA in 1 year. All questions were answered. Follow-up in 1 year with imaging, PSA, and PVR; or sooner with any issues, concerns, and or questions. Orders: Orders AMB Urinalysis Automated Today Z13.9 - Encounter for screening, unspecified Urine Cytology Today R31.29 - Other microscopic hematuria US renal BI 1 Year N20.0 - Calculus of kidney Prostate Specific Antigen 1 Year N40.0 - Benign prostatic hyperplasia without lower urinary tract symptoms Patient Instructions: The patient had an opportunity to ask questions regarding the treatment plan. All questions were answered. Physical exam, labs, and imaging were discussed and reviewed in detail. As well as risks, benefits, and discussion of treatment choices. No major barriers to understanding were identified. The patient expressed understanding and agreement with the above treatment plan. The patient was made aware they should contact our office by phone for worsening of their current condition, the appearance of new symptoms, or with any questions or concerns. Compliance is encouraged with any medications and follow up testing that is ordered. It is a privilege to be allowed the opportunity to participate in? your urological care.? Again, if you have any questions or concerns If you have any questions or concerns please do not hesitate to contact me. The office is [phone]. This note is constructed using voice recognition software. While every effort has been made to ensure accuracy tilting head band sawyer errors may have been included. Yours sincerely, ANNE Castorena-BC Coding Level of Care Code Est Pt Level 3 (20793) Complex EM visit Add On G2211 Diagnoses BPH (benign prostatic hyperplasia) N40.0 Family history of nephrolithiasis Z84.1 Nephrolithiasis N20.0 Gross hematuria R31.0 Microscopic hematuria R31.29 Renal cyst N28.1 CPT Codes Post Residual Void - PVR CPT Code: 70585-Trgr Void Residual by ultrasound ([id number])
--- OUTSIDE RECORDS SUMMARY | 2025-10-01 09:34 | XMS_ITS | Clinical Summary ---
Author Organization [facility] [place] Address [address] [place] [address] Care Team Providers Care Key Bed Installer Name Role Phone Olivia Greenwood MD Primary Care Provider [phone] Allergies No known active allergies Medications ERGOCALCIFEROL, [...] Active Problems Problem Noted Date Diagnosed Date Cyst of right kidney 09/24/2025 Overview (09/24/2025): During evaluation in [place] in ER for kidney cyst , ultrasound 2024 right upper pole1.3x1x0.9 cyst Ascending aorta dilatation (CMS/HCC V24) 025 Assessment & Plan (12/01/2024 4:36 [...] Basic metabolic panel; Future Secondary hypercoagulable state ([facility]/HCC V24) Assessment & Plan (12/01/2024 4:36 PM [...] 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 Vizcarra, [...] Surgery Date Site/Laterality Comments COLONOSCOPY 12/24/2007 PROCEDURE: CT COLONOSCOPY FLX DX W/COLLJ SPEC WHEN PFRMD; COMMENT: Negative COLONOSCOPY 12/26/2012 PROCEDURE: CT COLONOSCOPY FLX DX W/COLLJ SPEC WHEN PFRMD; [...] Procedure Name Priority Date/Time Associated Diagnosis Comments EXTERNAL CLINICAL LAB 09/17/2025 EXTERNAL ULTRASOUND REPORT 09/17/2025 EXTERNAL ULTRASOUND REPORT 09/17/2025 COLONOSCOPY Routine 12/29/2024 8:31 AM EST Family [...] Recently Relevant to Health Maintenance Results * External Ultrasound Report (09/17/2025) Only the most recent of2 resultswithin the time period is included. Anatomical Region Laterality Modality Ultrasound us Provider [facility] US PROCEDURES Final Result * External clinical lab (09/17/2025) us [facility] BLOOD ORDERABLES Fin al Result * COLONOSCOPY Anesthesia - MAC; [facility] ENDOSCOPY (12/29/2024 8:31 AM EST) Anatomical [...] care physician. Narrative 12/29/2024 8:31 AM EST [facility] GI Patient Name: Devonte Hawthorne Procedure Date: 12/29/2024 8:11 AM Date of : 1955 Age: 69 Gender: Male Note Status: Finalized Attending MD: Ness Daniels DO, [id number] Procedure Date No Time: 12/29/2024 Procedure: Colonoscopy [...] the physician, the nurse, the anesthesiologist, the professor of mathematics and the control technician in the pre-procedure area in the [...] colon K64.9, Unspecified hemorrhoids CPT copyright 2020 [employer]. All rights reserved. The codes documented in this report are preliminary and upon route delivery driver review may be revised to meet current compliance requirements. NESS Daniels DO 12/29/2024 8:31:39 AM This report has been signed electronically.Ness Daniels DO Number of Addenda: 0 Note Initiated On: 12/29/2024 8:11 AM Scope Withdrawal Time: 0 hours 7 minutes 3 seconds Scope In: 8:21:33 AM Scope Out: 8:30:33 AM Endoscopy Department at [facility] - [address] [place] [phone] Procedure Note Ness Daniels DO - 12/29/2024 [facility] GI Patient Name: Devonte Hawthorne Procedure Date: 12/29/2024 8:11 AM Date of : 1955 Age: 69 Gender: Male Note Status: Finalized Attending MD: Ness Daniels DO, [id number] Procedure Date No Time: 12/29/2024 Procedure: Colonoscopy [...] the physician, the nurse, the anesthesiologist, the professor of mathematics and thetechnician in the pre-procedure area in [...] colon K64.9, Unspecified hemorrhoids CPT copyright 2020 [employer]. All rights reserved. The codes documented in this report are preliminary and upon route delivery driver reviewmay be revised to meet current compliance requirements. NESS Daniels DO 12/29/2024 8:31:39 AM This report has been signed electronically.Ness Daniels DO Number of Addenda: 0 Note Initiated On: 12/29/2024 8:11 AM Scope Withdrawal Time: 0 hours 7 minutes 3 seconds Scope In: 8:21:33 AM Scope Out: 8:30:33 AM Endoscopy Department at [facility] - [address] [place] [phone] IMPRESSION: - Hemorrhoids found on perianal exam. - The examination was otherwise normal on directand retroflexion views. - No specimens collected. Recommendation: - - Discharge patient to home. - Resume previous diet. - Continue present medications. - Repeat colonoscopy in 10 years for screening purposes. - Return to primary care physician. Ness Jeremiah DO GI~PROCEDURE ORDERABLES Final Re sult * Falls Risk Assessment (08/04/2024) Pathologist [facility] Falls Risk Assessment Abstracted Historical Provider HEALTH MAINTENANCE Final Result * Depression Screening (08/04/2024) [facility] Depression Screening Abstracted Historical Provider HEALTH MAINTENANCE Final Result * Annual BMP Blood Test (12/04/2023) [facility]ologist [facility] Annual BMP Blood Test Abstracted [facility] Provider HEALTH MAINTENANCE Final Result * Lipid panel (07/26/2023) Pathologist [facility] LDL/HDL Ratio 3 0 - 4 Triglycerides 73 0 - 150 mg/dL Cholesterol 118 0 - 200 mg/dL HDL 46 >=40 mg/dL LDL Cholesterol 58 0 - 100 mg/dL Blood Venous blood specimen / Unknown [facility] Provider LAB BLOOD ORDERABLES Mecca l Result [...] of an abdominal aortic aneurysm. POS - [id number] Procedure Note Berenice Segal MD - 11/14/2022 [...] of an abdominal aortic aneurysm. POS - [id number] Raquel JEAN IMG US PROCEDURES Final Re sult * Hepatitis C Screening (03/22/2017) Hepatitis C Screening Abstracted Historical Provider HEALTH MAINTENANCE Final Result from Last 3 Months or Most Recently Relevant to Health Maintenance Insurance MEDICARE [facility] Care Teams Key Bed Installer Relationship Specialty Start Date End Date Olivia Greenwood MD [address] [place] [address] PCP - General 02/20/07
--- OUTSIDE RECORDS SUMMARY | 2025-10-01 09:34 | XMS_ITS | Patient Health Record ---
Author Organization [facility] [place] Address [address] [place] [address] Care Team Providers Care Manager Security Name Role Phone Krystyna MOURA, Olivia Bueno Primary Care Provider Unav ailable Archana Sparrow Unavailable [phone] Reason For Referral No Information Medications Medication SIG (Take, Route, Frequency, Duration) Notes Start Date End Date Status Atorvastatin Calcium 20 MG 1 tablet Oral ly Once a day; Duration: 30 day(s) Active Metoprolol Tartrate 25 MG 1 tablet with food Orally Twice a day; Duration: 30 day(s) Active Ciclopirox Olamine 0.77 % 1 application to affected area Externally to feet Twice a day; Duration: 30 days Active Metoprolol Succinate Active Atorvastatin Calcium 20 MG as directed Orally Active Vitamin D Active Immunizations Vaccine Route Administration Date Status Comme nts COVID-19 Pfizer BioNTech Vaccine Unknown 01/10/2021 Administered Second Dose: Social History Tobacco Use: Social History Observation Description Date Details (start date - stop date) Former Smoker NA - NA Tobacco Use/Smoking Question Answer Notes Are you a: former smoker Alcohol Screen Question Answer Notes Did you have a drink containing alcohol in the p ast year? No Points 0 Interpretation Negative Problems Problem Type SNOMED Code ICD Code Onset Dates Problem Status W/U Status Risk Notes Problem Acquired hammer toe of right foot ([id number] 105) Hammer toe of right foot (M20.41) Active confirmed Plan Of Treatment No Information Insurance Providers Payer Name Payer Address Payer Phone Subscriber Number Group Number Insured Name Patient Relationship to Insured Coverage Start Date Coverage End Date Medicare National [employer] [address] [place] [address] [id number] Devonte Hawthorne Self - patient is the insured [place] [address] [place] [address] [id number] Devonte Hawthorne Self - patient is the insured Medical (General) History Medical History History ICD Code Measles Mumps Chicken pox Surgical History Surgery Date(Month/Year) colonoscopy endoscopy wisdom teeth extraction- 2 cyst removal- back
== END 2025-10-01 09:22 | disposition home or self-care (01) ==
LOC: HO.HUSH 08:52
PROVIDERS: PCP Internal Medicine; Visit Provider Nurse Practitioner Family
DX: N40.0 Benign prostatic hyperplasia without lower urinary tract symptoms (principal); Z84.19 Family history of other disorders of kidney and ureter; N20.0 Calculus of kidney; R31.0 Gross hematuria; R31.29 Other microscopic hematuria; N28.1 Cyst of kidney, acquired
CPT/HCPCS: 99213; G2211

== ENCOUNTER 2025-10-01 08:52 | Outpatient (REF) | payer MEDICARE, SELFPAY | END 2025-10-01 08:53 | disposition home or self-care (01) | LOC: HO.LAB 08:52 | PROVIDERS: PCP Internal Medicine; Visit Provider Nurse Practitioner Family | DX: N40.1 Benign prostatic hyperplasia with lower urinary tract symptoms (principal); R31.0 Gross hematuria; N28.1 Cyst of kidney, acquired; Z79.01 Long term (current) use of anticoagulants; Z84.19 Family history of other disorders of kidney and ureter | CPT/HCPCS: 51798; 81003; 88112; 99212 ==